=== PATIENT | female | born 1950 | race Caucasian/White ===

== ENCOUNTER 2018-01-23 15:57 | Inpatient (IN) | payer OTHER, MEDICARE ==
--- NOTE | 2018-01-23 16:20 | EDPHY ---
H & P Stated Complaint: edema Time Seen by Provider: 01/23/18 16:20 HPI/ROS: CHIEF COMPLAINT: Leg edema, chronic dyspnea HISTORY OF PRESENT ILLNESS: The patient is referred to the ED for leg edema and chronic dyspnea. Patient has a history of COPD. She is not on home oxygen. She has had a productive cough and dyspnea that began in the part of November. She was treated with 2 rounds of antibiotics and prednisone. At the beginning of December she developed lower extremity edema. She initially was treated with 10 mg a day of oral Lasix. She reports that Butmax was started at the end of December. She reports that her weight has dropped from 128 lb 211 lb. She continues to have lower extremity edema. REVIEW OF SYSTEMS: A comprehensive 10 point review of systems is otherwise negative aside from elements mentioned in the history of present illness. Source: Patient Exam Limitations: No limitations - Personal History Current Tetanus/Diphtheria Vaccine: Yes Current Tetanus Diphtheria and Acellular Pertussis (TDAP): Yes - Medical/Surgical History Hx Asthma: No Hx Chronic Respiratory Disease: Yes Hx Diabetes: No Hx Cardiac Disease: No Hx Renal Disease: No Hx Cirrhosis: No Hx Alcoholism: No Hx HIV/AIDS: No Hx Splenectomy or Spleen Trauma: No Other PMH: PMH: PNA, KIDNEY URETER DEFECT. - Social History Smoking Status: Current every day smoker - Physical Exam Exam: General Appearance: Alert, no distress Eyes: Pupils equal and round no pallor or injection ENT, Mouth: Mucous membranes moist Respiratory: There are no retractions, lungs are clear to auscultation Cardiovascular: Regular rate and rhythm Gastrointestinal: Abdomen is soft and nontender, no masses, bowel sounds normal Neurological: A&O, normal motor function, normal sensory exam, normal cranial nerves Skin: 3+ lower extremity edema with changes consistent with stasis dermatitis Musculoskeletal: Neck is supple nontender Extremities: 3+ lower extremity edema Psychiatric: Patient is oriented X 3, there is no agitation Constitutional: Initial Vital Signs O2 Sat (%) 97 01/23/18 16:10 O2 Delivery Mode Nasal Cannula O2 (L/minute) 5 Allergies/Adverse Reactions: No Known Allergies Allergy (Unverified 01/23/18 16:06) Home Medications: Medication Instructions Recorded Buprenorphine HCl/Naloxone HCl 0.5 each SL BID@12/08/15 [Suboxone 8 mg-2 mg SL Film] Gabapentin [Neurontin 300 MG (*)] 300 mg PO HS 12/08/15 clonazePAM [Klonopin (*)] 0.5 mg PO HS 12/08/15 Albuterol [Proventil Inhaler HFA 1 - 2 puffs IH Q4H PRN 01/23/18 (*)] Bumetanide [Bumex (*)] 1 mg PO DAILY 01/23/18 Cholecalciferol Vit D3 [Vitamin D3 1,000 units PO DAILY 01/23/18 (*)] Furosemide [Lasix 40 MG (*)] 40 mg PO DAILY 01/23/18 Herbals/Supplements -Info Only 1 ea PO DAILY 01/23/18 Ipratropium/Albuterol [Duoneb (*)] 3 ml IH Q6H PRN 01/23/18 Multivitamins [Multivitamin (*)] 1 each PO DAILY 01/23/18 Medical Decision Making - Diagnostics EKG Interpretation: EKG: Complete interpretation has been separately recorded in the [email or web address] archive. Summary impression: Sinus rhythm, rate 82, LVH, ST T wave changes noted in the precordial leads. Imaging Results: Imaging Impressions Chest X-Ray 01/23/18 16:36 Impression: 1. Underlying COPD/emphysema suspected. 2. Mild prominent interstitial markings at the lung bases. Consider mild dependent interstitial edema possibly from mild fluid overload. CT pulmonary angiogram: Images reviewed by myself and discussed with radiologist Dr. Dietrich: Negative for PE. Patient does have an enlarged pulmonary artery. CT abdomen pelvis with IV contrast: Negative for obstructive lesion involving the IVC. ED Course/Re-evaluation: The patient presents to the ED with complaints of newly diagnosed severe hypoxemia with an oxygen saturation of 64% on room air, bilateral lower extremity swelling refractory to diuresis and ongoing dyspnea. The patient's hypoxia corrects with 4 L nasal cannula oxygen. Chest x-ray demonstrates COPD with associated heart failure. I reviewed the patient's past medical records including her hospitalization in 2016. She had an echocardiogram at that point time that demonstrate any EF of 60 -65%. She did have slightly elevated RV pressure. The patient will require admission to the hospital for further evaluation of her acute hypoxemia, refractory edema and dyspnea. Consultation is made with the hospitalist service. The patient is noted to have an elevated D-dimer. In the setting of her hypoxia a CT pulmonary angiogram has been ordered. Additionally a CT scan of the abdomen pelvis will be ordered to ensure there is no evidence of an obstructing IVC lesion. The patient will be admitted to the PCU telemetry unit this evening. Differential Diagnosis: Differential diagnosis considered includes congestive heart failure, arrhythmia , COPD exacerbation. - Data Points Laboratory Results: Laboratory Results 01/23/18 16:30 01/23/18 16:30 01/23/1818 01/23/18 16:30 16:30 16:30 WBC 8.73 10^3/uL 10^3/uL (3.80-9.50) RBC 5.65 10^6/uL H 10^6/uL (4.18-5.33) Hgb 16.3 g/dL g/dL (12.6-16.3) Hct 51.4 % H % (38.0-47.0) MCV 91.0 fL fL (81.5-99.8) MCH 28.8 pg pg (27.9-34.1) MCHC 31.7 g/dL L g/dL (32.4-36.7) RDW 16.8 % H % (11.5-15.2) Plt Count 336 10^3/uL 10^3/uL (150-400) MPV 8.9 fL fL (8.7-11.7) Neut % (Auto) 80.6 % H % (39.3-74.2) Lymph % (Auto) 11.1 % L % (15.0-45.0) [place] % (Auto) 6.9 % % (4.5-13.0) Eos % (Auto) 0.3 % L % (0.6-7.6) Baso % (Auto) 0.6 % % (0.3-1.7) Nucleat RBC Rel Count 0.0 % % (0.0-0.2) Absolute Neuts (auto) 7.04 10^3/uL H 10^3/uL (1.70-6.50) Absolute Lymphs (auto) 0.97 10^3/uL L 10^3/uL (1.00-3.00) Absolute Monos (auto) 0.60 10^3/uL 10^3/uL (0.30-0.80) Absolute Eos (auto) 0.03 10^3/uL 10^3/uL (0.03-0.40) Absolute Basos (auto) 0.05 10^3/uL 10^3/uL (0.02-0.10) Absolute Nucleated RBC 0.00 10^3/uL 10^3/uL (0-0.01) Immature Gran % 0.5 % % (0.0-1.1) Immature Gran # 0.04 10^3/uL 10^3/uL (0.00-0.10) D-Dimer REJ Sodium 136 mEq/L mEq/L (135-145) Potassium 3.2 mEq/L L mEq/L (3.5-5.2) Chloride 89 mEq/L L mEq/L (97-110) Carbon Dioxide 36 mEq/l H mEq/l (22-31) Anion Gap 11 mEq/L mEq/L (8-16) BUN 19 mg/dL mg/dL (7-23) Creatinine 0.5 mg/dL L mg/dL (0.6-1.0) Estimated GFR > 60 Glucose 134 mg/dL H mg/dL (70-100) Calcium 9.2 mg/dL mg/dL (8.5-10.4) Troponin I < 0.012 ng/mL ng/mL (0.000-0.034) NT-Pro-B Natriuret Pep 2660 pg/mL H pg/mL (0-125) Medications Given: Potassium Chloride (Klor-Con) 20 meq PO DAILY MAYCO Stop: 07/22/18 17:59 Last Admin: 01/23/18 18:26 Dose: 20 meq Discontinued Medications Bumetanide (Bumex) 1 mg IVP ONCE ONE Stop: 01/23/18 18:47 Last Admin: 01/23/18 20:56 Dose: 1 mg Potassium Chloride (Klor-Con) 40 meq PO ONCE ONE Stop: 01/23/18 17:48 Last Admin: 01/23/18 18:26 Dose: 40 meq Departure - Departure Disposition: [facility] Acute Clinical Impression: Peripheral edema, Hypoxemia, Chronic obstructive pulmonary disease with acute exacerbation Condition: Good
--- NOTE | 2018-01-23 16:29 | CPEKG ---
Heart Rate: 82 RR Interval: 732 P-R Interval: 148 QRSD Interval: 90 QT Interval: 400 QTC Interval: 468 P [place]: 79 QRS [place]: 116 T Wave [place]: 61 EKG Severity - ABNORMAL ECG - EKG Impression: SINUS RHYTHM EKG Impression: RIGHT AXIS DEVIATION EKG Impression: CONSISTENT WITH LEFT VENTRICULAR HYPERTROPHY EKG Impression: ANTERIOR ST ELEVATION, PROBABLY DUE TO LVH Electronically Signed By: Moy Goodman 23-Jan-2018 19:21:17
[2018-01-23 16:47] LABS: PLATELET COUNT 336 10^3/uL (150-400)
[2018-01-23] MEDS ORDERED: ACETAMINOPHEN 325 MG TAB PO PRN (17:44)
[2018-01-23] MEDS ORDERED: ONDANSETRON 4 MG/2 ML VIAL IVP PRN (17:44)
[2018-01-23] MEDS ORDERED: ONDANSETRON DISINTEGRATING 4 MG TAB PO PRN (17:44)
[2018-01-23] MEDS ORDERED: POTASSIUM CL 20 MEQ TAB PO ONE (17:47)
[2018-01-23] MEDS: POTASSIUM CL 20 MEQ TAB PO SCH (18:26)
[2018-01-23] MEDS ORDERED: IOPAMIDOL (ISOVUE 370) 100 ML BTL IV ONE (18:31)
[2018-01-23] MEDS ORDERED: IPRATROPIUM/ALBUTEROL 3 ML DEYVIAL IH PRN (18:46)
[2018-01-23] MEDS ORDERED: ALBUTEROL 60 PUFFS/8 GM MDI IH PRN (18:46)
[2018-01-23] MEDS ORDERED: BUMETANIDE 1 MG/4 ML VIAL IVP ONE (18:46)
[2018-01-23] MEDS ORDERED: NALOXONE HCL SL SCH (19:00)
[2018-01-23] MEDS ORDERED: [UNRECOGNIZED DRUG - OTHER] SL SCH (19:00)
[2018-01-23] MEDS ORDERED: BUPRENORPHINE HCL SL SCH (19:00)
--- NOTE | 2018-01-23 19:00 | PDGENHP ---
History and Physical - Chief Complaint Acute lower extremity edema - History of Present Illness Primary care provider: Dr. White HPI: 67-year-old female presents with acute lower extremity edema characterized as swollen, tight lower extremities equal bilaterally with associated flaking skin and areas of ulceration as well as erythema with associated shortness of breath exacerbated by exertion, nonproductive cough. The patient reports her onset of symptoms approximately 4 weeks ago with what she describes as pneumonia symptoms which initially responded to a course of steroids and antibiotics prescribed by her primary care provider. Her pulmonary symptoms did not completely resolve and she went back to her primary care provider, receiving an additional course of steroids and antibiotics. These were completed approximately 10 days ago. Occurring concomitantly during her pulmonary symptoms the patient began to experience the lower extremity edema and she was prescribed Lasix 20 mg once daily 3 weeks ago. This did not produce a particularly noticeable effect and approximately 1 week ago her primary care provider added Bumex 1 mg twice daily. The patient continued to take her Lasix, as well as the Bumex, and she began noting significant polyuria. Over the past week she has lost approximately 10 lb of water weight. Over the past several days she has de-escalated her Bumex dosing down to 1 mg once daily and discontinued her Lasix 20 mg once daily despite these interventions, the patient's lower extremity edema persists and the aforementioned skin changes concern the patient and she sought medical attention. She is not currently have primary care provider as her former PCP is out of network, the patient became increasingly dyspneic, cognitively fatigue and concerned on the day of presentation. She denies any overt chest pain or fevers, but does endorse intermittent chills as well as polyarthralgia. History Information - Allergies/Home Medication List Allergies/Adverse Reactions: No Known Allergies Allergy (Unverified 01/23/18 16:06) Home Medications: Buprenorphine HCl/Naloxone HCl [Suboxone 8 mg-2 mg SL Film] 0.5 each SL BID@12/08/15 [Last Taken 01/23/18 06:00] Gabapentin [Neurontin 300 MG (*)] 300 mg PO HS 12/08/15 [Last Taken 01/22/18] clonazePAM [Klonopin (*)] 0.5 mg PO HS 12/08/15 [Last Taken 01/22/18] Albuterol [Proventil Inhaler HFA (*)] 1 - 2 puffs IH Q4H PRN 01/23/18 [Last Taken 01/23/18 15:00] Bumetanide [Bumex (*)] 1 mg PO DAILY 01/23/18 [Last Taken 01/23/18 06:00] Cholecalciferol Vit D3 [Vitamin D3 (*)] 1,000 units PO DAILY 01/23/18 [Last Taken 01/23/18] Furosemide [Lasix 40 MG (*)] 40 mg PO DAILY 01/23/18 [Last Taken 01/23/18 06:00] Herbals/Supplements -Info Only 1 ea PO DAILY 01/23/18 [Last Taken 01/23/18] Ipratropium/Albuterol [Duoneb (*)] 3 ml IH Q6H PRN 01/23/18 [Last Taken 05:00] Multivitamins [Multivitamin (*)] 1 each PO DAILY 01/23/18 [Last Taken 01/23/18] I have personally reviewed and updated: family history, medical history, social history, surgical history - Past Medical History CHF (Suspected diastolic CHF from 2 years prior, has not seen a shingle grader), COPD Additional medical history: Rheumatoid arthritis with continuous opiate dependency. Peripheral neuropathy - Surgical History Additional surgical history: Right total hip replacement 1999 - Family History Additional family history: No family history of venous thromboembolism or coronary artery disease - Social History Smoking Status: Current every day smoker Alcohol Use: None Drug Use: None Additional social history: Independent in ADLs Review of Systems Review of Systems: ROS: 10pt was reviewed & negative except for what was stated in HPI & below Constitutional: Reports: chills, weight loss Cardiac: Reports: edema Respiratory: Reports: cough, shortness of breath Skin: Reports: change in color Physical Exam Physical Exam: Temp Pulse Resp BP Pulse Ox 37.1 C 87 18 103/65 95 01/23/18 18:46 01/23/18 18:46 01/23/18 18:46 01/23/18 18:46 01/23/18 18:26 O2 (L/minute) 5 Constitutional: appears nourished, not in pain, uncomfortable, No no apparent distress (Mild) Eyes: PERRL, anicteric sclera, EOMI Ears, Nose, Mouth, Throat: moist mucous membranes, hearing normal, ears appear normal, no oral mucosal ulcers Cardiovascular: edema (2+ bilateral lower extremities), No systolic murmur, No irregularly irregular, No JVD (Positive hepatic jugular reflux), No tachycardia Respiratory: reduced air movement (On expiration bilaterally), other (Cough triggered with expiration), No expiratory wheeze, No inspiratory crackles, No bronchial breath sounds Gastrointestinal: normoactive bowel sounds, No tenderness, No guarding, No distension Skin: erythema (Blanching bilateral lower extremities), other (Ulcerations skin flaking bilateral lower extremities) Musculoskeletal: full muscle strength, other (Full range of motion bilateral ankles with some tenderness in the calves on dorsiflexion) Neurologic: AAOx3, sensation intact bilaterally, No weakness (5/5 motor strength bilateral lower extremities) Psychiatric: interacting appropriately, not anxious, not encephalopathic, thought process linear Lymph, Heme, Immunologic: no cervical LAD, other (Mildly tender 2 cm submandibular lymph nodes bilaterally) Lab Data & Imaging Review 01/23/18 16:30 01/23/18 16:30 WBC 8.73 10^3/uL (3.80-9.50) 01/23/18 16:30 RBC 5.65 10^6/uL (4.18-5.33) H 01/23/18 16:30 Hgb 16.3 g/dL (12.6-16.3) 01/23/18 16:30 Hct 51.4 % (38.0-47.0) H 01/23/18 16:30 MCV 91.0 fL (81.5-99.8) 01/23/18 16:30 MCH 28.8 pg (27.9-34.1) 01/23/18 16:30 MCHC 31.7 g/dL (32.4-36.7) L 01/23/18 16:30 RDW 16.8 % (11.5-15.2) H 01/23/18 16:30 Plt Count 336 10^3/uL (150-400) 01/23/18 16:30 MPV 8.9 fL (8.7-11.7) 01/23/18 16:30 Neut % (Auto) 80.6 % (39.3-74.2) H 01/23/18 16:30 Lymph % (Auto) 11.1 % (15.0-45.0) L 01/23/18 16:30 [place] % (Auto) 6.9 % (4.5-13.0) 01/23/18 16:30 Eos % (Auto) 0.3 % (0.6-7.6) L 01/23/18 16:30 Baso % (Auto) 0.6 % (0.3-1.7) 01/23/18 16:30 Nucleat RBC Rel Count 0.0 % (0.0-0.2) 01/23/18 16:30 Absolute Neuts (auto) 7.04 10^3/uL (1.70-6.50) H 01/23/18 16:30 Absolute Lymphs (auto) 0.97 10^3/uL (1.00-3.00) L 01/23/18 16:30 Absolute Monos (auto) 0.60 10^3/uL (0.30-0.80) 01/23/18 16:30 Absolute Eos (auto) 0.03 10^3/uL (0.03-0.40) 01/23/18 16:30 Absolute Basos (auto) 0.05 10^3/uL (0.02-0.10) 01/23/18 16:30 Absolute Nucleated RBC 0.00 10^3/uL (0-0.01) 01/23/18 16:30 Immature Gran % 0.5 % (0.0-1.1) 01/23/18 16:30 Immature Gran # 0.04 10^3/uL (0.00-0.10) 01/23/18 16:30 D-Dimer 0.98 ug/mLFEU (0.00-0.50) H 01/23/18 17:45 Sodium 136 mEq/L (135-145) 01/23/18 16:30 Potassium 3.2 mEq/L (3.5-5.2) L 01/23/18 16:30 Chloride 89 mEq/L (97-110) L 01/23/18 16:30 Carbon Dioxide 36 mEq/l (22-31) H 01/23/18 16:30 Anion Gap 11 mEq/L (8-16) 01/23/18 16:30 BUN 19 mg/dL (7-23) 01/23/18 16:30 Creatinine 0.5 mg/dL (0.6-1.0) L 01/23/18 16:30 Estimated GFR > 60 01/23/18 16:30 Glucose 134 mg/dL (70-100) H 01/23/18 16:30 Calcium 9.2 mg/dL (8.5-10.4) 01/23/18 16:30 Troponin I < 0.012 ng/mL (0.000-0.034) 01/23/18 16:30 NT-Pro-B Natriuret Pep 2660 pg/mL (0-125) H 01/23/18 16:30 Visualized and Interpreted Chest x-ray results: Yes Chest X-Ray results: other (Hyperinflated lungs with interstitial markings in the bases) Visualized and Interpreted EKG results: Yes EKG Interpretation: Positive for: other (Normal sinus mechanism with ST elevation in lead V2 and V3 with T-wave inversions and likely left ventricular hypertrophy) Assessment & Plan Assessment: 67-year-old female presenting with acute dyspnea and lower extremity edema in the setting of suspected acute diastolic congestive heart failure exacerbation, right-sided Plan: 1. Suspected acute diastolic congestive heart failure exacerbation. Right- sided, new problem this provider, further workup indicated. Patient's symptoms suggest right-sided CHF and correspond to her history of underlying COPD and ongoing tobacco use, and there may be a diastolic component with review of outside records revealing diastolic dysfunction on echocardiogram and elevated right-sided pressures during her 12/12/2015 episode of care and discharge summary by Dr. Hector Sales, discharged on Lasix 20 mg daily, BNP 2200 at that time -repeat echo -administer Bumex 1 mg IV twice daily with supplemental potassium -monitor electrolytes closely -check respiratory viral panel to ensure that viral condition not contributing -monitor I&Os, daily weights -D-dimer elevated, discussed with Dr. Kostas Goodman, we agree to get CT angiogram to rule out pulmonary embolism as a contributing factor -hold on cardiology consultation at this time, gather information above, the pending on study results, may recommend outpatient cardiology follow-up to the patient at [facility] -continue monitor on telemetry to ensure no arrhythmias as a contributing factor 2. COPD. Chronic, currently no evidence of acute exacerbation, continue home medications with nebs and inhalers as needed 3. Hyperglycemia. Acute, check hemoglobin A1c 4. Continuous opiate dependency. Continue home Suboxone 5. Rheumatoid arthritis and neuropathy. Continue gabapentin, Suboxone Diet. Cardiac Prophylaxis. High risk patient, Lovenox 40 Code. Do not resuscitate per patient, her children are joint MD POA Disposition. Anticipated discharge is uncertain this time, anticipated length stay is greater than 48 hr for reasonable medical necessity including acute suspected CHF exacerbation requiring further workup as well as treatment with IV diuretics, has failed oral diuretics as an outpatient and meets all inpatient criteria as outlined by [facility] guidelines. Patient reports to me that she does not have access to her previous primary care provider given insurance restrictions, recommend we assist her finding a primary care provider in [place] who will take her Medicare coverage.
[2018-01-23] MEDS: GABAPENTIN 300 MG CAP PO SCH (21:28)
[2018-01-23] MEDS: clonazePAM 0.5 MG TAB PO SCH (21:28)
[2018-01-24] MEDS ORDERED: BUMETANIDE 1 MG/4 ML VIAL IVP SCH (09:00)
[2018-01-24] MEDS ORDERED: Herbals/Supplements -Info Only PO SCH (09:00)
[2018-01-24] MEDS: ENOXAPARIN 40 MG/0.4 ML SYR SC SCH (09:35)
[2018-01-24] MEDS: POTASSIUM CL 20 MEQ TAB PO SCH (09:37)
[2018-01-24] MEDS: CHOLECALCIFEROL VIT D3 1,000 UNITS TAB PO SCH (09:37)
[2018-01-24] MEDS: MULTIVITAMINS 1 EACH TAB PO SCH (09:37)
--- NOTE | 2018-01-24 10:15 | PDMN ---
Medical Necessity Medical necessity: est los>2mn for AHRF w/ O2 sat 68 RA, r/t acute diastolic CHF exacerbation w/failed OP oral diuretics, and acute hyperglycemia; admit for IV diuresis, supplemental O2, r/o PE; comorbid COPD, RA, neuropathy, opiate dependency; per order and H&P 01/23/18
--- NOTE | 2018-01-24 10:33 | ECHO ---
[email or web address] [address] [address] Main: [phone] Fax: Transthoracic Echocardiogram Name: MICHELLE PACE MR#: [id number] Study Date: 01/24/2018 Study Time: 07:58 AM Date of : 1950 Age: 67 year(s) Height: 162.6 cm (64 in.) Weight: 50.35 kg (111 lb.) BSA: 1.52 m2 Gender: Female Examination: Echo Indication: Image Quality: Adequate Contrast: Requested by: Albert Garcia BP: 110 mmHg/47 mmHg Heart Rate: Rhythm: Indication: Procedure Staff [employer]enger Car: Nelly Leiva RDCS Reading Physician: Gus Daigle MD Requesting Provider: Conclusions: Normal global systolic LV function. EF is 63 %. Mildly to moderately dilated right ventricle. Mildly reduced RV function. Moderate tricuspid regurgitation is present. The pulmonary artery pressure is mild to moderately increased. Right ventricular systolic pressure measures 55mmHg. Measurements: Chambers Valvular Assessment AV/MV Valvular Assessment TV/PV Normal Normal Normal Name Value Range Name Value Range Name Value Range Ao Qing (2D): 2.9 cm (1.4 cm-2.6 AV meanP mmHg ( - ) TR Vmax: 3.54 mm/s ( - ) cm) KIRTI (VTI): 2.7 cm ( - ) TR PGmax: 50 mmHg ( - ) IVSd (2D): 1.5 cm (0.6 cm-1.1 MV E Vmax: 0.92 m/s ( - ) syst. PAP: 105 mmHg ( - ) cm) MV A Vmax: 0.66 m/s ( - ) PV Vmax: 0.90 m/s (0.6 m/s-0.9 LVDd (2D): 3.1 cm (3.9 cm-5.3 MV E/A: 1.39 ( - ) m/s) cm) MV PHT: 0.081 s ( - ) PV PGmax: 3 mmHg ( - ) LVDs (2D): 2.1 cm (2.1 cm-4 cm) MVA (PHT): 2.7 s ( - ) LVPWd (2D): 1.3 cm ( - ) LVOTd 2.0 cm 2.0 cm mm LVEF (BP): 63 % (>=55 %) RVDd(2D): 2.9 cm (1.9 cm-3.8 cmmm) Continued Measurements: Chambers Valvular Assessment AV/MV Valvular Assessment TV/PV Name Value Name Value Name Value Patient: MICHELLE PACE Study Date: 01/24/2018 Page 1 of 2 07:58 AM LADs: 3.6 cm MV DecTime: 261 m/s CVP (est.): 55 mmHg LADs Lon.7 cm MV E' Septal: 0.05 m/s LA Area: 16.4 cm2 MV E/E' Septal: 17.20 LA Volume: 51 ml MV E/E' Lateral: 10.30 LA Volume Index: 33.6 ml/m2 RA Area: 22.7 cm2 Additional Vessels Name Value Ao Ascendin.0 cm Inferior Vena Cava: 1.9 cm Findings: Left Ventricle: Normal size left ventricle. Normal global systolic LV function. EF is 63 %. No regional wall motion abnormality. Normal diastolic LV function. Left ventricular hypertrophy. Right Ventricle: Mildly to moderately dilated right ventricle. Mildly reduced RV function. Dilated right heart suggestive of pressure overload. Left Atrium: The left atrium is normal in size. Right Atrium: Right atrial enlargement. Mitral Valve: The mitral valve is normal in appearance and function. Mild mitral valve regurgitation is present. No mitral stenosis is present. Aortic Valve: The aortic valve is normal in appearance and function. Aortic sclerosis is present. There is no significant aortic valve regurgitation. No aortic valve stenosis is present. Focal calcification of the non-coronary cusp. Tricuspid Valve: The tricuspid valve is normal in appearance and function. Moderate tricuspid regurgitation is present. The pulmonary artery pressure is mild to moderately increased. Right ventricular systolic pressure measures 55mmHg. Pulmonic Valve: The pulmonic valve is normal in appearance and function. Trivial pulmonic valve regurgitation. Aorta: The aorta is normal. Normal size aortic root measuring 2.9 cm. Normal size ascending aorta measuring 3.0 cm. IVC: The IVC is normal sized. Pericardium: No pericardial effusion. No pleural effusion. Exam Comments: Technically difficult, patient very thin. (No Signature Object) Patient: MICHELLE PACE Study Date: 01/24/2018 Page 2 of 2 07:58 AM [id number]
[2018-01-24] MEDS: predniSONE 20 MG TAB PO SCH (10:53)
[2018-01-24] MEDS: IPRATROPIUM/ALBUTEROL 3 ML DEYVIAL IH SCH ×3 (11:18→21:14)
[2018-01-24] MEDS: FLUTICASONE/SALMETER 250/50MCG DISKUS IH SCH ×2 (11:29→21:14)
--- NOTE | 2018-01-24 12:37 | ASMTCASEMG ---
Living Arrangements What is your living Answers: Alone arrangement? Who do you live with? Type Of Residence What kind of residence do Answers: House you live in? Discharge Plan Comments Coordination Status Comments Notes: Pt is a 67 y/o female admitted for COPD, hypoxia and peripheral edema. PT/OT has been ordered. OT is recommending home w/ HC vs home w/ outpatient therapies. Awaiting recommendations from PT. Needs are TBD at this time. CM to follow. Plan: TBD Date Signed: 01/24/2018 12:37 PM Electronically Signed By:JACLYN Foreman
[2018-01-24] MEDS: BUMETANIDE 1 MG/4 ML VIAL IVP SCH (15:39)
--- NOTE | 2018-01-24 15:41 | HOSPPROG ---
Hospitalist Progress Note Assessment/Plan: # acute hypoxic respiratory failure - multifactorial- patient with previous history of COPD- oxygen saturations 89% on 4L Chest CT(personally reviewed and interpreted) shows no pulmonary embolism or infiltrates -start prednisone 60 -start Advair -continue scheduled duo nebs # acute COPD exacerbation- patient moving very poor air on examination with some wheezing Based on history of symptoms prior to presentation suspect patient has Gold class C COPD Respiratory pathogen panel negative - treatment as above # suspected acute right heart failure- patient with progressive lower extremity edema preceding presentation - transthoracic echocardiogram ordered - continue diuresis # severe protein calorie malnutrition- losing weight over past year- suspect 2/ 2 progressive lung disease # prophylaxis Lovenox # diet regular # disposition greater than 2 midnights as the patient remains acutely quite ill requiring inpatient management of her COPD I have discussed case with the RN- we will initiate steroids today follow clinical progress Subjective: Feels a bit better still exhausted Objective: Vital Signs Temp Pulse Resp BP Pulse Ox 36.7 C 87 15 98/64 L 85 L 01/24/18 12:13 01/24/18 12:13 01/24/18 12:13 01/24/18 12:13 01/24/18 12:58 Microbiology 01/23/18 21:08 Respiratory Panel (PCR) - Final Nasal, Sinus - [place] Viral Transport No Organism Detected Laboratory Results 01/24/18 04:04 01/23/18 01/24/18 01/25/18 05:59 05:59 05:59 Intake Total 1100 Output Total 1150 1000 Balance -50 -1000 - Physical Exam Constitutional: chronically ill appearing, cachectic Eyes: anicteric sclera Ears, Nose, Mouth, Throat: dry mucous membranes Cardiovascular: regular rate and rhythym Respiratory: no respiratory distress, reduced air movement, expiratory wheeze Gastrointestinal: normoactive bowel sounds Genitourinary: no bladder fullness Skin: warm Musculoskeletal: No asymmetric calves Neurologic: AAOx3 Psychiatric: interacting appropriately Lymph, Heme, Immunologic: no cervical LAD ICD10 Worksheet Patient Problems: Problems Problem Status Onset Chronic obstructive pulmonary disease with acute exacerbation Acute Hypoxemia Acute Peripheral edema Acute Acute exacerbation of congestive heart failure Acute Pneumonia and influenza Acute Respiratory distress Acute
[2018-01-24] MEDS: clonazePAM 0.5 MG TAB PO SCH (20:11)
[2018-01-24] MEDS: GABAPENTIN 300 MG CAP PO SCH (20:11)
[2018-01-25] MEDS: IPRATROPIUM/ALBUTEROL 3 ML DEYVIAL IH SCH ×4 (06:19→21:02)
[2018-01-25] MEDS: predniSONE 20 MG TAB PO SCH (09:04)
[2018-01-25] MEDS: MULTIVITAMINS 1 EACH TAB PO SCH (09:04)
[2018-01-25] MEDS: POTASSIUM CL 20 MEQ TAB PO SCH (09:05)
[2018-01-25] MEDS: ENOXAPARIN 40 MG/0.4 ML SYR SC SCH (09:05)
[2018-01-25] MEDS: CHOLECALCIFEROL VIT D3 1,000 UNITS TAB PO SCH (09:05)
[2018-01-25] MEDS: BUMETANIDE 1 MG/4 ML VIAL IVP SCH ×2 (09:06→15:09)
[2018-01-25] MEDS: NICOTINE 14 MG/24 HR PATCH TD SCH (10:40)
[2018-01-25] MEDS: FLUTICASONE/SALMETER 250/50MCG DISKUS IH SCH ×2 (11:15→21:02)
--- NOTE | 2018-01-25 11:42 | HOSPPROG ---
Hospitalist Progress Note Assessment/Plan: # acute hypoxic respiratory failure - multifactorial- patient with previous history of COPD- oxygen saturations 93% on 5L Chest CT (personally reviewed and interpreted) shows no pulmonary embolism or infiltrates -start prednisone 60 -start Advair -continue scheduled duo nebs # acute COPD exacerbation- patient moving very poor air on examination with some wheezing Based on history of symptoms prior to presentation suspect patient has Gold class C COPD Respiratory pathogen panel negative - treatment as above # Acute right heart failure- patient with progressive lower extremity edema preceding presentation- edema improved creatinine 0.4 transthoracic echocardiogram (reviewed) right heart failure with preserved EF - continue diuresis # severe protein calorie malnutrition- losing weight over past year- suspect 2/ 2 progressive lung disease # prophylaxis Lovenox # diet regular # disposition greater than 2 midnights as the patient remains acutely quite ill requiring inpatient management of her COPD I have discussed case with the RN- I am confident that his patient will need outpatient oxygen on dc - we discussed this today Subjective: breathing more easily Objective: Vital Signs Temp Pulse Resp BP Pulse Ox 36.6 C 88 18 93/54 L 88 L 01/25/18 07:49 01/25/18 11:16 01/25/18 11:16 01/25/18 07:49 01/25/18 11:16 Microbiology 01/23/18 21:08 Respiratory Panel (PCR) - Final Nasal, Sinus - [place] Viral Transport No Organism Detected Laboratory Results 01/25/18 03:58 01/24/18 01/25/18 01/26/18 05:59 05:59 05:59 Intake Total 1100 600 450 Output Total 1150 1600 800 Balance -50 -1000 -350 - Physical Exam Constitutional: no apparent distress Eyes: anicteric sclera Ears, Nose, Mouth, Throat: moist mucous membranes Cardiovascular: regular rate and rhythym Respiratory: reduced air movement, No expiratory wheeze Gastrointestinal: normoactive bowel sounds Genitourinary: no bladder fullness Skin: warm Musculoskeletal: other (symmetric edema), No asymmetric calves Neurologic: AAOx3 Psychiatric: interacting appropriately Lymph, Heme, Immunologic: no cervical LAD ICD10 Worksheet Patient Problems: Problems Problem Status Onset Chronic obstructive pulmonary disease with acute exacerbation Acute Hypoxemia Acute Peripheral edema Acute Acute exacerbation of congestive heart failure Acute Pneumonia and influenza Acute Respiratory distress Acute
--- NOTE | 2018-01-25 12:08 | ASMTCMCOM ---
CM Note CM Note Notes: Pts case discussed in tx rounds. CM met w/ pt for dispo planning. PT is recommending outpatient therapy and OT is recommending HC vs home w/ outpatient follow up. Pt reports that she feels confident to go home without any services. Pt did request to have a new PCP. Pt reports that since she got on Medicare her previous PCP can no longer accept her insurance. Pt would prefer a male doctor, someone that takes her insurance and someone in [place]. CM made a new PCP appointment for pt w/ Dr. Garcias for 01/30/18 @ 9:45AM. CM inputted appointment into [facility]. CM available for changes. Plan: Independent Date Signed: 01/25/2018 12:07 PM Electronically Signed By:JACLYN Foreman
[2018-01-25] MEDS: GABAPENTIN 300 MG CAP PO SCH (21:31)
[2018-01-25] MEDS: clonazePAM 0.5 MG TAB PO SCH (21:32)
[2018-01-25] MEDS ORDERED: SIMETHICONE 80 MG TAB CHEW PO PRN (22:56)
[2018-01-26] MEDS: IPRATROPIUM/ALBUTEROL 3 ML DEYVIAL IH SCH ×4 (04:11→22:57)
[2018-01-26] MEDS: NICOTINE 14 MG/24 HR PATCH TD SCH (09:22)
[2018-01-26] MEDS: BUMETANIDE 1 MG/4 ML VIAL IVP SCH ×2 (09:24→14:23)
[2018-01-26] MEDS: CHOLECALCIFEROL VIT D3 1,000 UNITS TAB PO SCH (09:26)
[2018-01-26] MEDS: ENOXAPARIN 40 MG/0.4 ML SYR SC SCH (09:26)
[2018-01-26] MEDS: MULTIVITAMINS 1 EACH TAB PO SCH (09:26)
[2018-01-26] MEDS: POTASSIUM CL 20 MEQ TAB PO SCH (09:26)
[2018-01-26] MEDS: predniSONE 20 MG TAB PO SCH (09:27)
[2018-01-26] MEDS: FLUTICASONE/SALMETER 250/50MCG DISKUS IH SCH ×2 (10:35→22:59)
--- NOTE | 2018-01-26 13:25 | HOSPPROG ---
Hospitalist Progress Note Assessment/Plan: * Acute respiratory failure -still on 9L O2 - needs to wean further down for discharge -repeat CXR * COPD exacerbation -steroids, nebs * Secondary pulm HTN with right heart failure -IV Bumex * Tobacco dependence -advised cessation * RA * Neuropathy * Continuous narcotic dependency -Suboxone * Bile duct dilation -consider outpatient MRCP Subjective: Anxious to go home. Legs back to baseline for her. Objective: Vital Signs Temp Pulse Resp BP Pulse Ox 37.4 C 91 17 110/57 L 83 L 01/26/18 11:34 01/26/18 11:34 01/26/18 11:34 01/26/18 11:34 01/26/18 12:32 Laboratory Results 01/26/18 03:54 01/25/18 01/26/18 01/27/18 05:59 05:59 05:59 Intake Total 600 900 Output Total 1600 2150 900 Balance -1000 -1250 -900 ECHO - pulmonary HTN, RVSP > 50 CTA chest - no PE CXR viewed, my personal interpretation is - hyperexpanded, possible pulmonary edema - Physical Exam Constitutional: no apparent distress, appears nourished, not in pain Cardiovascular: regular rate and rhythym, no murmur, rub, or gallop Respiratory: no respiratory distress, no rales or rhonchi, clear to auscultation Gastrointestinal: normoactive bowel sounds, soft, non-tender abdomen, no palpable masses Skin: no rashes or abrasions, no fluctuance, no induration Neurologic: AAOx3, sensation intact bilaterally Psychiatric: interacting appropriately, not anxious, not encephalopathic, thought process linear ICD10 Worksheet Patient Problems: Problems Problem Status Onset Chronic obstructive pulmonary disease with acute exacerbation Acute Hypoxemia Acute Peripheral edema Acute Acute exacerbation of congestive heart failure Acute Pneumonia and influenza Acute Respiratory distress Acute
[2018-01-26] MEDS: guaiFENesin 600 MG TAB.ER PO SCH ×2 (14:24→21:22)
[2018-01-26] MEDS: clonazePAM 0.5 MG TAB PO SCH (21:23)
[2018-01-26] MEDS: GABAPENTIN 300 MG CAP PO SCH (21:23)
[2018-01-27 04:32] LABS: PLATELET COUNT 278 10^3/uL (150-400)
[2018-01-27] MEDS: IPRATROPIUM/ALBUTEROL 3 ML DEYVIAL IH SCH ×4 (05:51→22:41)
[2018-01-27] MEDS: FLUTICASONE/SALMETER 250/50MCG DISKUS IH SCH ×2 (08:58→22:46)
--- NOTE | 2018-01-27 09:37 | HOSPPROG ---
Hospitalist Progress Note Assessment/Plan: * Acute respiratory failure -81 % on 4L this am - still need to wean O2 lower for discharge -possible infiltrate on CXR - although no classic signs of PNA (no WBC/fever) will try empiric course abx to see if helps - start levaquin * COPD exacerbation -steroids, nebs * Secondary pulm HTN with right heart failure -IV Bumex -edema right >> left - check US rule out DVT * Tobacco dependence -advised cessation * RA * Neuropathy * Continuous narcotic dependency -Suboxone * Bile duct dilation -consider outpatient MRCP Subjective: No complaints. Objective: Vital Signs Temp Pulse Resp BP Pulse Ox 36.5 C 75 16 112/66 93 01/27/18 04:00 01/27/18 09:02 01/27/18 09:02 01/27/18 04:00 01/27/18 09:02 Microbiology 01/26/18 14:30 - Final Sputum, Expectorated Laboratory Results 01/27/18 04:17 01/27/18 04:17 01/26/18 01/27/18 01/28/18 05:59 05:59 05:59 Intake Total 900 350 Output Total 2149 2049 Balance -1250 -1700 CXR viewed, my personal interpretation is - possible LLL infiltrate tele reviewed - NSR - Physical Exam Constitutional: no apparent distress, appears nourished, not in pain Cardiovascular: regular rate and rhythym, no murmur, rub, or gallop, edema ( right >> left) Respiratory: no respiratory distress, no rales or rhonchi, clear to auscultation Gastrointestinal: normoactive bowel sounds, soft, non-tender abdomen, no palpable masses Skin: no rashes or abrasions, no fluctuance, no induration Neurologic: AAOx3, sensation intact bilaterally Psychiatric: interacting appropriately, not anxious, not encephalopathic, thought process linear ICD10 Worksheet Patient Problems: Problems Problem Status Onset Chronic obstructive pulmonary disease with acute exacerbation Acute Hypoxemia Acute Peripheral edema Acute Acute exacerbation of congestive heart failure Acute Pneumonia and influenza Acute Respiratory distress Acute
[2018-01-27] MEDS: NICOTINE 14 MG/24 HR PATCH TD SCH (09:38)
[2018-01-27] MEDS: guaiFENesin 600 MG TAB.ER PO SCH ×2 (09:38→20:33)
[2018-01-27] MEDS: BUMETANIDE 1 MG/4 ML VIAL IVP SCH ×2 (09:38→17:17)
[2018-01-27] MEDS: POTASSIUM CL 20 MEQ TAB PO SCH (09:40)
[2018-01-27] MEDS: CHOLECALCIFEROL VIT D3 1,000 UNITS TAB PO SCH (09:41)
[2018-01-27] MEDS: predniSONE 20 MG TAB PO SCH (09:41)
[2018-01-27] MEDS: MULTIVITAMINS 1 EACH TAB PO SCH (09:42)
[2018-01-27] MEDS: ENOXAPARIN 40 MG/0.4 ML SYR SC SCH (09:42)
[2018-01-27] MEDS: GABAPENTIN 300 MG CAP PO SCH (22:22)
[2018-01-27] MEDS: clonazePAM 0.5 MG TAB PO SCH (22:23)
[2018-01-28] MEDS: IPRATROPIUM/ALBUTEROL 3 ML DEYVIAL IH SCH ×2 (05:34→11:26)
[2018-01-28] MEDS: guaiFENesin 600 MG TAB.ER PO SCH (08:25)
[2018-01-28] MEDS: predniSONE 20 MG TAB PO SCH (08:25)
[2018-01-28] MEDS: POTASSIUM CL 20 MEQ TAB PO SCH (08:25)
[2018-01-28] MEDS: MULTIVITAMINS 1 EACH TAB PO SCH (08:25)
[2018-01-28] MEDS: CHOLECALCIFEROL VIT D3 1,000 UNITS TAB PO SCH (08:26)
[2018-01-28] MEDS: NICOTINE 14 MG/24 HR PATCH TD SCH (08:26)
[2018-01-28] MEDS: BUMETANIDE 1 MG/4 ML VIAL IVP SCH (08:27)
[2018-01-28] MEDS: ENOXAPARIN 40 MG/0.4 ML SYR SC SCH (08:31)
[2018-01-28] MEDS: FLUTICASONE/SALMETER 250/50MCG DISKUS IH SCH (08:47)
--- NOTE | 2018-01-28 10:12 | PDHOMEO2F ---
Home Oxygen Face to Face Home Orders: I certify that a physician or a nurse practitioner or physician's employment assistant has had a [id number] encounter with this patient on the date of this order due to the diagnosis listed, which relates to the primary reason the patient requires home oxygen. Alternative treatments have been tried, or considered, and deemed ineffective. It is anticipated that supplemental oxygen will result in improvement with treatment. Home oxygen qualifying diagnosis: COPD SpO2 on room air (%): 81 Frequency of home oxygen needed: continuous Home oxygen liters per minute: 4 Home oxygen delivery device: nasal cannula Concentrator: Yes E-tanks for mobility and back up: Yes If ordering portable O2, is the patient mobile in the home?: Yes I certify that, based on these findings, the home oxygen is medically necessary for this patient for the following length of time. Length of time home oxygen needed: 99 years
--- NOTE | 2018-01-28 10:22 | PDIAF ---
- Diagnosis Diagnosis: COPD exac, right heart failure, pna Code Status: Do Not Resuscitate - Medication Management Discharge Medications: Medications to Continue on Transfer Buprenorphine HCl/Naloxone HCl [Suboxone 8 mg-2 mg SL Film] 0.5 each SL BID@12/08/15 [Last Taken 01/23/18 06:00] Gabapentin [Neurontin 300 MG (*)] 300 mg PO HS 12/08/15 [Last Taken 01/22/18] clonazePAM [Klonopin (*)] 0.5 mg PO HS 12/08/15 [Last Taken 01/22/18] Albuterol [Proventil Inhaler HFA (*)] 1 - 2 puffs IH Q4H PRN 01/23/18 [Last Taken 01/23/18 15:00] Bumetanide [Bumex (*)] 1 mg PO DAILY 01/23/18 [Last Taken 01/23/18 06:00] Cholecalciferol Vit D3 [Vitamin D3 (*)] 1,000 units PO DAILY 01/23/18 [Last Taken 01/23/18] Herbals/Supplements -Info Only 1 ea PO DAILY 01/23/18 [Last Taken 01/23/18] Ipratropium/Albuterol [Duoneb (*)] 3 ml IH Q6H PRN 01/23/18 [Last Taken 05:00] Multivitamins [Multivitamin (*)] 1 each PO DAILY 01/23/18 [Last Taken 01/23/18] Fluticasone/Salmeter 250/50Mcg [Advair 250/50 (*)] 1 puffs IH BID #1 disk [Last Taken Unknown] Potassium Cl [Klor-Con 20 meq (*)] 20 meq PO DAILY #30 tab 01/28/18 [Last Taken Unknown] levOFLOXACIN [levAQUIN (*)] 750 mg PO DAILY #5 tab 01/28/18 [Last Taken Unknown] predniSONE 40 mg PO DAILY #10 tablet 01/28/18 [Last Taken Unknown] Discharge Medications: Refer to the Discharge Home Medication list for PRN reason. - Orders Services needed: Home Care, Registered Nurse, Physical Therapy, Occupational Therapy Home Care Face to Face: I certify that this patient was under my care and that I had the required [id number] encounter meeting the encounter requirements on the discharge day. My findings support the fact that the patient is homebound as defined in Home Care Face to Face Continued: CMS Chapter 7 Medicare Benefits Manual 30.1.1 , The condition of the patient is such that there exists a normal inability to leave home and consequently, leaving home would require a considerable and taxing effort. Isolation Type: None Oxygen: titrate to sat 91-92% Diet Recommendation: sodium restricted (2 grams) Weigh Patient: daily Additional Instructions: Daily weight - take extra dose Bumex in afternoon if weight is increasing Follow-up sputum culture results with PCP Outpatient MRCP to evaluate bile duct dilation STOP SMOKING Outpatient Pulmonary Rehab - Follow Up Care Current Providers and Referrals: Jessica Garcias MD [Medical Doctor] - 01/30/18 9:45 am (Please arrive 15-20 mins prior to appointment to fill out paperwork, insurance card, photo ID and med list.)
--- NOTE | 2018-01-28 10:52 | ASDISCHSUM ---
Discharge Information Plan Status:Home with Home Health Medically Cleared to Leave:01/28/2018 Discharge Date:01/28/2018 CM D/C Disposition:Home Health Service ADT D/C Disposition:Home Health Service Projected Discharge Date:01/28/2018 11:00 AM Transportation at D/C: Discharge Delay Reason: Follow-Up Date:01/28/2018 11:00 AM Discharge Slot: Final Diagnosis: Placement Information Referral Type:*Home Health Care Services Referral ID:[id number] Provider Name:[facility] Care Address 1:[address] [place] [address] Address 2: City:[place] Selection Factors: State:[place] Patient Contact Information Contact Name:KELSIE Relationship:Son Address: Work Phone: City: [facility] Phone: [facility] Code: Email: Financial Information Financial Class:Medicare Primary Plan Desc:MEDICARE INPATIENT Primary Plan Number:[id number] Secondary Plan Desc:[employer]/MDR SUPPLEMENT Secondary Plan Number:[id number] Assessment Information LACE LACE Length of stay for Answers: 4-6 days current admission Acuity / Level of Answers: Yes Care: Did the patient have an inpatient admission? Comorbidities - select Answers: Chronic pulmonary disease all that apply Congestive heart failure Opioid dependence / Chronic pain # of Emergency department Answers: 1-2 visits in the last 6 months Score: 16 Date Signed: 01/28/2018 10:51 AM Electronically Signed By:Gaby Johnston RN [facility] Initial CM Assessment Living Arrangements What is your living Answers: Alone arrangement? Who do you live with? Type Of Residence What kind of residence do Answers: House you live in? Discharge Plan Comments Coordination Status Comments Notes: Pt is a 67 y/o female admitted for COPD, hypoxia and peripheral edema. PT/OT has been ordered. OT is recommending home w/ HC vs home w/ outpatient therapies. Awaiting recommendations from PT. Needs are TBD at this time. CM to follow. Plan: TBD Date Signed: 01/24/2018 12:37 PM Electronically Signed By:JACLYN Foreman [facility] Progress Note CM Note CM Note Notes: Pts case discussed in tx rounds. CM met w/ pt for dispo planning. PT is recommending outpatient therapy and OT is recommending HC vs home w/ outpatient follow up. Pt reports that she feels confident to go home without any services. Pt did request to have a new PCP. Pt reports that since she got on Medicare her previous PCP can no longer accept her insurance. Pt would prefer a male doctor, someone that takes her insurance and someone in [place]. CARMEN made a new PCP appointment for pt w/ Dr. Garcias for 01/30/18 @ 9:45AM. CM inputted appointment into [facility]. CM available for changes. Plan: Independent Date Signed: 01/25/2018 12:07 PM Electronically Signed By:JACLYN Foreman Case Management Discharge Plan Note Case Management Discharge Discharge Order Complete? Answers: Yes Patient to Obtain Answers: Independently Medications Transportation Arranged Answers: Family/Friends Faxed Final Orders Answers: Yes Agency/Facility Transfer Answers: Yes Report Printed & Faxed to Receiving Agency Discharge Comments Notes: 01/28/2018 Case Management Note Pt has appointment for Dr. Acevedo on 01/30/2018 at 9:45 am. Arranged home care through [facility] for RN OT PT. Case Management faxed final orders. Date Signed: 01/28/2018 10:50 AM Electronically Signed By:Gaby Johnston RN Intervention Information Intervention Type:*IM-Signed Date of Service:01/25/2018 02:38 PM Patient Type:Inpatient Staff Member:Belia Perez Hours: Discipline: Severity: Comment:
--- NOTE | 2018-01-28 11:18 | GDS ---
[f rep st] DISCHARGE SUMMARY DISCHARGE DIAGNOSES: 1. Acute on chronic respiratory failure. 2. Chronic obstructive pulmonary disease exacerbation. 3. Secondary pulmonary hypertension with right heart failure. 4. Tobacco dependence. 5. Rheumatoid arthritis. 6. Neuropathy. 7. Continuous narcotic dependency. 8. Bile duct dilatation. HISTORY: The patient is a 67-year-old female, still smoking, came in with shortness of breath. She was found to have significant acute respiratory failure with very high oxygen requirement up to 9-10 L. She was treated with steroids and nebulizers for a COPD exacerbation. She had significant lower extremity edema, and her echocardiogram shows pulmonary hypertension. She was diuresed successfully with IV Bumex. She was very slow to improve. She was not given antibiotics initially because she did not have fever or white count, although a followup x-ray did show development of a subtle infiltrate. Given her fa ilure to progress, I did empirically start her on some antibiotics. She got a dose of Levaquin IV ye sterday and is dramatically improved today, which suggests that there was an acute bacterial componen t. Will complete a full course of oral Levaquin post discharge. Her oxygen requirement has come eder n, but she will be discharged home with home O2. I would not be surprised if she has a chronic oxyge n requirement indefinitely. Incidentally noted on CT scan is some bile duct dilatation. There was no obvious mass. Her LFTs are normal. She has not previously had a cholecystectomy. This should be followed up as an outpatient. Could consider MRCP. DISCHARGE MEDICATIONS: 1. Please see computerized record for full detailed list. New medications Advair 250/50 one puff b. i.d. 2. Levaquin 750 mg p.o. daily for 5 more days. 3. Prednisone 40 mg p.o. daily x5 days, then stop. 4. Potassium 20 mEq p.o. daily. She will continue her Bumex at 1 mg p.o. daily. ADDITIONAL DISCHARGE INSTRUCTIONS: 1. Daily weight, taking extra dose of Bumex in the afternoon if the weight is increasing. 2. Follow up sputum cultures with primary care. Currently, current preliminary sputum is showing Ci trobacter and Klebsiella. 3. Outpatient MRCP to evaluate bile duct dilatation. 4. Stop smoking. 5. Outpatient pulmonary rehab. 6. Followup appointment scheduled with Dr. Garcias. 7. Home oxygen titrate, titrate to 91% to 92%. 8. Home health PT, OT, VNS. Greater than 30 minutes' time was spent arranging this discharge. Patient was seen and examined by fabien clark on day of discharge. /[id number]/MODL
[2018-01-28 12:56] VITALS: BP 94/54
== END 2018-01-28 12:44 | disposition home health service (06) | DRG 189 ==
LOC: F2W 18:40
PROVIDERS: ADMIT Internal Medicine; ATTEND Internal Medicine
DX: J96.21 Acute and chronic respiratory failure with hypoxia (principal); J44.1 Chronic obstructive pulmonary disease with (acute) exacerbation; M06.9 Rheumatoid arthritis, unspecified; F11.20 Opioid dependence, uncomplicated; K83.8 Other specified diseases of biliary tract; I27.20 Pulmonary hypertension, unspecified; I50.30 Unspecified diastolic (congestive) heart failure; G62.9 Polyneuropathy, unspecified; F17.210 Nicotine dependence, cigarettes, uncomplicated; Z96.641 Presence of right artificial hip joint; Z87.01 Personal history of pneumonia (recurrent)
CPT/HCPCS: 97116-GP; 97161-GP; 97165-GO; 97530-GO; 97530-GP; 97535-GO; G8978-GP-CJ; G8979-GP-CI; G8987-GO-CI; G8988-GO-CI; G8989-GO-CI; J0574; J1650; J1956; J7512; Q9967

== ENCOUNTER → 2018-02-28 | Outpatient (CLI) | payer OTHER, MEDICARE | LOC: CIMAGING 14:43 | PROVIDERS: ATTEND Internal Medicine | DX: J43.9 Emphysema, unspecified (principal); R91.8 Other nonspecific abnormal finding of lung field | CPT/HCPCS: 71046-PO ==

== ENCOUNTER → 2018-03-18 | Outpatient (CLI) | payer OTHER, MEDICARE | LOC: CIMAGING 15:34 | PROVIDERS: ATTEND Internal Medicine | DX: J44.1 Chronic obstructive pulmonary disease with (acute) exacerbation (principal); R91.8 Other nonspecific abnormal finding of lung field | CPT/HCPCS: 71046-PO ==

== ENCOUNTER 2018-04-08 20:14 | Inpatient (IN) | payer OTHER, MEDICARE ==
[2018-04-08] MEDS ORDERED: methylPREDNISolone SOD SUCC 125 MG/2 ML VIAL IVP ONE (20:37)
[2018-04-08] MEDS ORDERED: IPRATROPIUM/ALBUTEROL 3 ML DEYVIAL IH ONE ×2 (20:37→20:47)
[2018-04-08] MEDS ORDERED: NS 500 ML IV ONE (20:37)
--- NOTE | 2018-04-08 20:49 | CPEKG ---
Heart Rate: 115 RR Interval: 522 P-R Interval: 140 QRSD Interval: 96 QT Interval: 324 QTC Interval: 448 P [place]: 84 QRS [place]: 107 T Wave [place]: 54 EKG Severity - ABNORMAL ECG - EKG Impression: SINUS TACHYCARDIA EKG Impression: RIGHT ATRIAL ABNORMALITY EKG Impression: RIGHT AXIS DEVIATION EKG Impression: CONSIDER LEFT VENTRICULAR HYPERTROPHY EKG Impression: PROBABLE INFERIOR INFARCT, OLD Electronically Signed By: Kev Epstein 08-Apr-2018 22:42:22
[2018-04-08 20:51] LABS: PLATELET COUNT 286 10^3/uL (150-400)
[2018-04-08] MEDS ORDERED: NS 1,600 ML IV ONE ×2 (20:59)
[2018-04-08 21:05] LABS: INR 0.95 (0.83-1.16); PROTIME(PATIENT) 12.9 SEC (12.0-15.0)
--- NOTE | 2018-04-08 21:43 | EDPHY ---
H & P Stated Complaint: Hypoxia Time Seen by Provider: 04/08/18 20:26 HPI/ROS: Chief Complaint: Shortness of breath HPI: 67-year-old woman with a history of COPD and recurrent pneumonia since November of this year is presenting with worsening shortness of breath over the last 3-4 days. 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 She has continued to have a cough for the last 4 days productive of greenish sputum. Some subjective fevers and chills. No nausea or vomiting. No chest pain. No leg pain or swelling. She has been using her oxygen this evening with no significant relief. At triage patient had an oxygen saturation of 65%. ROS: 10 point Review of Systems is negative except as noted in the HPI. Social History: Longstanding history of smoking, no alcohol, no recreational drug use Family History: non-contributory Physical Exam: Gen: Awake, Alert, patient's in significant respiratory distress. Oxygen saturations 7% on room air, patient's tachypneic and tachycardic HEENT: Nose: no rhinorrhea Eyes: PERRLA, EOMI Mouth: Moist mucosa Neck: Supple, no JVD Chest: nontender, breath sounds are dramatically diminished throughout Heart: S1, S2 normal, no murmur, tachycardic Abd: Soft, non-tender, no guarding Back: no CVA tenderness, no midline tenderness Ext: no edema, non-tender Skin: no rash Neuro: CN II-XII intact, Sensation grossly intact, Strength 5/5 in bilateral upper and lower extremities - Personal History Current Tetanus Diphtheria and Acellular Pertussis (TDAP): Yes - Medical/Surgical History Hx Asthma: No Hx Chronic Respiratory Disease: Yes Hx Diabetes: No Hx Cardiac Disease: No Hx Renal Disease: No Hx Cirrhosis: No Hx Alcoholism: No Hx HIV/AIDS: No Hx Splenectomy or Spleen Trauma: No Other PMH: PMH: PNA, KIDNEY URETER DEFECT. - Social History Smoking Status: Current every day smoker Constitutional: Initial Vital Signs Temperature (C) 36.6 C 04/08/18 20:35 Heart Rate 120 H 04/08/18 20:35 Respiratory Rate 36 H 04/08/18 20:35 Blood Pressure 127/72 H 04/08/18 20:35 O2 Sat (%) 67 L 04/08/18 20:35 O2 Delivery Mode Bi-Pap O2 (L/minute) 15 Allergies/Adverse Reactions: No Known Allergies Allergy (Unverified 04/08/18 20:34) Home Medications: Medication Instructions Recorded Buprenorphine HCl/Naloxone HCl 0.5 each SL BID@,18 12/08/15 [Suboxone 8 mg-2 mg SL Film] Gabapentin [Neurontin 300 MG (*)] 300 mg PO HS 12/08/15 clonazePAM [Klonopin (*)] 0.5 mg PO HS 12/08/15 Albuterol [Proventil Inhaler HFA 1 - 2 puffs IH Q4H PRN 01/23/18 (*)] Bumetanide [Bumex (*)] 1 mg PO DAILY 01/23/18 Cholecalciferol Vit D3 [Vitamin D3 1,000 units PO DAILY 01/23/18 (*)] Herbals/Supplements -Info Only 1 ea PO DAILY 01/23/18 Ipratropium/Albuterol [Duoneb (*)] 3 ml IH Q6H PRN 01/23/18 Multivitamins [Multivitamin (*)] 1 each PO DAILY 01/23/18 Fluticasone/Salmeter 250/50Mcg 1 puffs IH BID #1 disk 01/28/18 [Advair 250/50 (*)] Potassium Cl [Klor-Con 20 meq (*)] 20 meq PO DAILY #30 tab 01/28/18 levOFLOXACIN [levAQUIN (*)] 750 mg PO DAILY #5 tab 01/28/18 predniSONE 40 mg PO DAILY #10 tablet 01/28/18 Medical Decision Making - Diagnostics EKG Interpretation: ECG time 8:46 p.m., sinus tachycardia with a rate of 115, right axis deviation, RVH by a morphology, Q-waves in the inferior leads consistent with an old infarct. Imaging Results: Imaging Impressions Chest X-Ray 04/08/18 21:04 Impression: 1. Mild prominent interstitial markings at the lung bases could represent some mild dependent interstitial edema. With prominence of the pulmonary vasculature centrally, consider mild fluid overload. 2. Hyperexpanded lungs compatible with underlying COPD and emphysema. ED Course/Re-evaluation: 67-year-old woman presenting with COPD exacerbation. She does meet SIRS criteria. Sepsis pathway initiated. She is given a DuoNeb. Solu-Medrol ordered. Patient oxygen saturations 87% on nasal cannula. She has got significant work of breathing. Second DuoNeb ordered. Lactate noted at 2.3. She meets sepsis criteria. IV fluids ordered. Chest x-ray shows perihilar prominence with emphysema, no large focal infiltrate. Patient has improved air movement with dramatic diffuse expiratory wheezing. Her work of breathing is increased and she has have worsening tachypnea. Will start her on BiPAP. I have also ordered ceftriaxone IV. Blood cultures are sent and pending. Will also add magnesium IV. Patient is improved on BiPAP. She is comfortable. She is continuing to get nebulized treatments. Will discussed with hospitalist for admission. Critical Care Time: I spent a total of 40 minutes of critical care time in obtaining history, performing a physical exam, bedside monitoring of interventions, collecting and interpreting tests and discussion with consultants but not including time spent performing procedures. - Data Points Laboratory Results: Laboratory Results 04/08/18 20:30 04/08/18 20:30 04/08/18 04/08/18 04/08/18 20:30 20:30 20:30 WBC 14.77 10^3/uL H 10^3/uL (3.80-9.50) RBC 5.54 10^6/uL H 10^6/uL (4.18-5.33) Hgb 17.0 g/dL H g/dL (12.6-16.3) Hct 52.1 % H % (38.0-47.0) MCV 94.0 fL fL (81.5-99.8) MCH 30.7 pg pg (27.9-34.1) MCHC 32.6 g/dL g/dL (32.4-36.7) RDW 20.0 % H % (11.5-15.2) Plt Count 286 10^3/uL 10^3/uL (150-400) MPV 8.8 fL fL (8.7-11.7) Neut % (Auto) 87.9 % H % (39.3-74.2) Lymph % (Auto) 6.1 % L % (15.0-45.0) [place] % (Auto) 5.1 % % (4.5-13.0) Eos % (Auto) 0.1 % L % (0.6-7.6) Baso % (Auto) 0.3 % % (0.3-1.7) Nucleat RBC Rel Count 0.0 % % (0.0-0.2) Absolute Neuts (auto) 12.99 10^3/uL H 10^3/uL (1.70-6.50) Absolute Lymphs (auto) 0.90 10^3/uL L 10^3/uL (1.00-3.00) Absolute Monos (auto) 0.75 10^3/uL 10^3/uL (0.30-0.80) Absolute Eos (auto) 0.01 10^3/uL L 10^3/uL (0.03-0.40) Absolute Basos (auto) 0.04 10^3/uL 10^3/uL (0.02-0.10) Absolute Nucleated RBC 0.00 10^3/uL 10^3/uL (0-0.01) Immature Gran % 0.5 % % (0.0-1.1) Immature Gran # 0.08 10^3/uL 10^3/uL (0.00-0.10) Platelet Estimate ADEQUATE (ADEQ) Polychromasia 1+ H PT 12.9 SEC SEC (12.0-15.0) INR 0.95 (0.83-1.16) APTT 25.2 SEC SEC (23.0-38.0) VBG Lactic Acid Sodium 140 mEq/L mEq/L (135-145) Potassium 3.4 mEq/L mEq/L (3.3-5.0) Chloride 92 mEq/L L mEq/L (97-110) Carbon Dioxide 37 mEq/l H mEq/l (22-31) Anion Gap 11 mEq/L mEq/L (8-16) BUN 28 mg/dL H mg/dL (7-23) Creatinine 0.7 mg/dL mg/dL (0.6-1.0) Estimated GFR > 60 Glucose 107 mg/dL H mg/dL (70-100) Calcium 10.7 mg/dL H mg/dL (8.5-10.4) Phosphorus 4.5 mg/dL mg/dL (2.5-4.5) Total Bilirubin 1.2 mg/dL mg/dL (0.1-1.4) 04/08/18 20:30 WBC RBC Hgb Hct MCV MCH MCHC RDW Plt Count MPV Neut % (Auto) Lymph % (Auto) [place] % (Auto) Eos % (Auto) Baso % (Auto) Nucleat RBC Rel Count Absolute Neuts (auto) Absolute Lymphs (auto) Absolute Monos (auto) Absolute Eos (auto) Absolute Basos (auto) Absolute Nucleated RBC Immature Gran % Immature Gran # Platelet Estimate Polychromasia PT INR APTT VBG Lactic Acid 2.3 mmol/L H mmol/L (0.7-2.1) Sodium Potassium Chloride Carbon Dioxide Anion Gap BUN Creatinine Estimated GFR Glucose Calcium Phosphorus Total Bilirubin Medications Given: Sodium Chloride (Ns) 1,600 mls @ 266.6666 mls/hr 30 ml/kg infuse over 6 hr ( 1600 ml) IV EDNOW ONE PRN Reason: Protocol Stop: 04/09/18 02:58 Last Admin: 04/08/18 21:30 Dose: 1,600 mls Magnesium Sulfate/Dextrose (Magnesium Sulf 1 Gm (Premix)) 100 mls @ 100 mls/hr IV EDNOW ONE Stop: 04/08/18 22:52 Last Admin: 04/08/18 22:00 Dose: 100 mls Discontinued Medications Albuterol/Ipratropium (Duoneb) 3 ml IH EDNOW ONE Stop: 04/08/18 20:38 Last Admin: 04/08/18 20:42 Dose: 3 ml Albuterol/Ipratropium (Duoneb) 3 ml IH EDNOW ONE Stop: 04/08/18 20:48 Last Admin: 04/08/18 20:50 Dose: 3 ml Sodium Chloride (Ns) 500 mls @ 1,000 mls/hr IV EDNOW ONE PRN Reason: Protocol Stop: 04/08/18 21:06 Last Admin: 04/08/18 20:42 Dose: 500 mls Sodium Chloride (Ns) 1,600 mls @ 3,200 mls/hr 30 ml/kg infuse over 30 min ( 1600 ml) IV EDNOW ONE PRN Reason: Protocol Stop: 04/08/18 21:28 Last Admin: 04/08/18 21:10 Dose: 1,600 mls Ceftriaxone Sodium/Dextrose (Rocephin 1 Gm (Premix)) 50 mls @ 100 mls/hr IV EDNOW ONE PRN Reason: Protocol Stop: 04/08/18 22:13 Last Admin: 04/08/18 21:48 Dose: 50 mls Methylprednisolone Sodium Succinate (Solu-Medrol) 125 mg IVP EDNOW ONE Stop: 04/08/18 20:38 Last Admin: 04/08/18 20:42 Dose: 125 mg Departure - Departure Disposition: [facility] Inpatient Acute Clinical Impression: Chronic obstructive pulmonary disease with acute exacerbation Condition: Serious
[2018-04-08] MEDS ORDERED: MAGNESIUM SULF 1 GM/DEXTROSE 100 ML IV ONE (21:53)
[2018-04-08] MEDS ORDERED: AZITHROMYCIN IV 500 MG in NS 250 ML IV ONE (22:07)
[2018-04-08] MEDS ORDERED: ACETAMINOPHEN 325 MG TAB PO PRN (22:38)
[2018-04-08] MEDS ORDERED: ONDANSETRON 4 MG/2 ML VIAL IVP PRN (22:38)
[2018-04-08] MEDS ORDERED: ONDANSETRON DISINTEGRATING 4 MG TAB PO PRN (22:38)
--- NOTE | 2018-04-09 00:08 | PDGENHP ---
History and Physical - Chief Complaint Shorntess of breath - History of Present Illness 67 yo F w/ hx of COPD, RA, and pHTN presents with shortness of breath. Patient has last hospitalized here for COPD exacerbation and CHF exacerbation in January of this year. She tells me she has not felt back to baseline since this hospitalization. She has been treated as an outpatient for possible pneumonia on 2 or 3 occasions. Over the last 3-4 days, her cough and shortness of breath have worsened dramatically. Her cough is now very productive of green sputum. Upon arrival to the ED she was 65% on RA. She also reports a temperature of 101 at home. 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 Of note, she quite smoking 2 weeks ago. However, she has only been using O2 at night (4L) She does not have a pulse ox at home to check her O2 sats during the day. Case was discussed with Dr. Epstein; previous records reviewed including D/C summary by Dr. Jeffrey dated 01/28/18 detailing last admission for COPD exacerbation. History Information - Allergies/Home Medication List Allergies/Adverse Reactions: No Known Allergies Allergy (Unverified 04/08/18 20:34) Home Medications: Buprenorphine HCl/Naloxone HCl [Suboxone 8 mg-2 mg SL Film] 0.5 each SL BID@12/08/15 [Last Taken 01/23/18 06:00] Gabapentin [Neurontin 300 MG (*)] 300 mg PO HS 12/08/15 [Last Taken 01/22/18] clonazePAM [Klonopin (*)] 0.5 mg PO HS 12/08/15 [Last Taken 01/22/18] Albuterol [Proventil Inhaler HFA (*)] 1 - 2 puffs IH Q4H PRN 01/23/18 [Last Taken 01/23/18 15:00] Bumetanide [Bumex (*)] 1 mg PO DAILY 01/23/18 [Last Taken 01/23/18 06:00] Cholecalciferol Vit D3 [Vitamin D3 (*)] 1,000 units PO DAILY 01/23/18 [Last Taken 01/23/18] Herbals/Supplements -Info Only 1 ea PO DAILY 01/23/18 [Last Taken 01/23/18] Ipratropium/Albuterol [Duoneb (*)] 3 ml IH Q6H PRN 01/23/18 [Last Taken 05:00] Multivitamins [Multivitamin (*)] 1 each PO DAILY 01/23/18 [Last Taken 01/23/18] I have personally reviewed and updated: family history, medical history - Past Medical History CHF (Suspected diastolic CHF from 2 years prior, has not seen a stiff leg operator), COPD Additional medical history: Rheumatoid arthritis with continuous opiate dependency. Peripheral neuropathy - Surgical History Additional surgical history: Right total hip replacement 1999 - Family History Additional family history: No family history of venous thromboembolism or coronary artery disease - Social History Smoking Status: Current every day smoker Additional social history: Independent in ADLs Review of Systems Review of Systems: ROS: 10pt was reviewed & negative except for what was stated in HPI & below Physical Exam Physical Exam: Temp Pulse Resp BP Pulse Ox 37.2 C 96 19 108/57 L 95 04/08/18 23:10 04/08/18 23:10 04/08/18 23:10 04/08/18 23:10 04/08/18 23:10 O2 (L/minute) 15 Constitutional: not in pain, uncomfortable Eyes: PERRL, EOMI Ears, Nose, Mouth, Throat: moist mucous membranes, no oral mucosal ulcers Cardiovascular: regular rate and rhythym, no murmur, rub, or gallop, No edema Respiratory: reduced air movement, expiratory wheeze, respiratory distress Gastrointestinal: normoactive bowel sounds, soft, non-tender abdomen Skin: warm, normal color Musculoskeletal: full muscle strength, no muscle tenderness, other (Joint deformities in hands, no active inflammation noted) Neurologic: AAOx3, CN II-XII Intact Psychiatric: interacting appropriately, not anxious Lab Data & Imaging Review 04/08/18 20:30 04/08/18 20:30 WBC 14.77 10^3/uL (3.80-9.50) H 04/08/18 20:30 RBC 5.54 10^6/uL (4.18-5.33) H 04/08/18 20:30 Hgb 17.0 g/dL (12.6-16.3) H 04/08/18 20:30 Hct 52.1 % (38.0-47.0) H 04/08/18 20:30 MCV 94.0 fL (81.5-99.8) 04/08/18 20:30 MCH 30.7 pg (27.9-34.1) 04/08/18 20:30 MCHC 32.6 g/dL (32.4-36.7) 04/08/18 20:30 RDW 20.0 % (11.5-15.2) H 04/08/18 20:30 Plt Count 286 10^3/uL (150-400) 04/08/18 20:30 MPV 8.8 fL (8.7-11.7) 04/08/18 20:30 Neut % (Auto) 87.9 % (39.3-74.2) H 04/08/18 20:30 Lymph % (Auto) 6.1 % (15.0-45.0) L 04/08/18 20:30 [place] % (Auto) 5.1 % (4.5-13.0) 04/08/18 20:30 Eos % (Auto) 0.1 % (0.6-7.6) L 04/08/18 20:30 Baso % (Auto) 0.3 % (0.3-1.7) 04/08/18 20:30 Nucleat RBC Rel Count 0.0 % (0.0-0.2) 04/08/18 20:30 Absolute Neuts (auto) 12.99 10^3/uL (1.70-6.50) H 04/08/18 20:30 Absolute Lymphs (auto) 0.90 10^3/uL (1.00-3.00) L 04/08/18 20:30 Absolute Monos (auto) 0.75 10^3/uL (0.30-0.80) 04/08/18 20:30 Absolute Eos (auto) 0.01 10^3/uL (0.03-0.40) L 04/08/18 20:30 Absolute Basos (auto) 0.04 10^3/uL (0.02-0.10) 04/08/18 20:30 Absolute Nucleated RBC 0.00 10^3/uL (0-0.01) 04/08/18 20:30 Immature Gran % 0.5 % (0.0-1.1) 04/08/18 20:30 Immature Gran # 0.08 10^3/uL (0.00-0.10) 04/08/18 20:30 Platelet Estimate ADEQUATE (ADEQ) 04/08/18 20:30 Polychromasia 1+ H 04/08/18 20:30 PT 12.9 SEC (12.0-15.0) 04/08/18 20:30 INR 0.95 (0.83-1.16) 04/08/18 20:30 APTT 25.2 SEC (23.0-38.0) 04/08/18 20:30 VBG Lactic Acid 0.6 mmol/L (0.7-2.1) L 04/08/18 22:30 Sodium 140 mEq/L (135-145) 04/08/18 20:30 Potassium 3.4 mEq/L (3.3-5.0) 04/08/18 20:30 Chloride 92 mEq/L (97-110) L 04/08/18 20:30 Carbon Dioxide 37 mEq/l (22-31) H 04/08/18 20:30 Anion Gap 11 mEq/L (8-16) 04/08/18 20:30 BUN 28 mg/dL (7-23) H 04/08/18 20:30 Creatinine 0.7 mg/dL (0.6-1.0) 04/08/18 20:30 Estimated GFR > 60 04/08/18 20:30 Glucose 107 mg/dL (70-100) H 04/08/18 20:30 Calcium 10.7 mg/dL (8.5-10.4) H 04/08/18 20:30 Phosphorus 4.5 mg/dL (2.5-4.5) 04/08/18 20:30 Total Bilirubin 1.2 mg/dL (0.1-1.4) 04/08/18 20:30 Imaging Review: Imaging Impressions Chest X-Ray 04/08/18 21:04 Impression: 1. Mild prominent interstitial markings at the lung bases could represent some mild dependent interstitial edema. With prominence of the pulmonary vasculature centrally, consider mild fluid overload. 2. Hyperexpanded lungs compatible with underlying COPD and emphysema. Visualized and Interpreted EKG results: Yes EKG Interpretation: Positive for: normal sinsus rhythm, other (Sinus tach) Assessment & Plan Assessment: 67 yo F w/ COPD, dCHF, pHTN, and RA presents with acute COPD exacerbation. Plan: 1. Acute COPD exacerbation - This is her second serious exacerbation requiring hospitalization in the last 3 months. Trigger on this occasion appears infectious (productive cough, fever, elevated WBC); it is unclear if another additional factor is contributing to her frequent decompensation. She stopped smoking 2 weeks ago but only wears her O2 at night. She does not have a pulse ox at home so she does not know if she is chronically hypoxic. - Admit to SDU for close monitoring - Initially requiring BIPAP but now on facemask - Duonebs QID trey + albuterol q2h PRN - Prednisone x5 days - Will continue CTX/Azithro for full CAP coverage for now noting dramatic presentation - Procalcitonin, sputum culture, blood culture, respiratory PCR, and legionella/ Strep urine Ags ordered - Will order D-dimer to screen for PE, CTA if positive - Would benefit from addition of Spiriva at discharge 2. Acute on chronic HRF - Currently wearing 4 L/min O2 nocturnally. She was saturating 65% on RA upon arrival in the ED. - Acute management as above - Incentive spirometer - Wean O2 as able - I suspect she will need continuous O2 at discharge 3. dCHF - Appears euvolemic on exam during this admission; she has been compliant with her home Bumex. 4. pHTN - RVSP 55 mm Hg on most recent TTE. 5. RA - Not on medications, denies symptoms. Diet - Regular Code - Full Ppx - LMWH Dispo - Admit under observation status
[2018-04-09] MEDS ORDERED: IOPAMIDOL (ISOVUE 370) 100 ML BTL IV ONE (00:47)
[2018-04-09] MEDS: IPRATROPIUM/ALBUTEROL 3 ML DEYVIAL IH SCH ×4 (05:53→20:45)
[2018-04-09 06:10] LABS: PLATELET COUNT 225 10^3/uL (150-400)
[2018-04-09] MEDS: AZITHROMYCIN 250 MG TAB PO SCH (08:25)
[2018-04-09] MEDS: predniSONE 20 MG TAB PO SCH (08:25)
[2018-04-09] MEDS: ENOXAPARIN 40 MG/0.4 ML SYR SC SCH (08:25)
[2018-04-09] MEDS: ALBUTEROL 3 ML DEYVIAL IH PRN (08:28)
[2018-04-09] MEDS ORDERED: guaiFENesin 200 MG TAB PO PRN (09:06)
--- NOTE | 2018-04-09 09:10 | HOSPPROG ---
Hospitalist Progress Note Assessment/Plan: #COPD exacerbation: +Rhino/entero. Will cover CAP. Prednisone, nebs -Bipap this morning #Pulm HTN: FU Dr. Hamilton outpatient #Lactic acidosis: resolved with IVFs #Leukocytosis: CAP, sputum/blood cultures #Acute on chronic hypoxemic resp failure: COPD exacerbation, Bipap #Chronic opioid dependency: home meds #Diet: regular #DVT ppx: Lovenox #Disp: cont inpatient admission for acute COPD exacerbation, Bipap, abx Subjective: productive green cough Objective: Vital Signs Temp Pulse Resp BP Pulse Ox 36.2 C 68 21 H 97/52 L 98 04/09/18 07:55 04/09/18 07:55 04/09/18 07:55 04/09/18 07:55 04/09/18 07:55 Microbiology 04/08/18 23:15 - Final Sputum, Expectorated Laboratory Results 04/09/18 05:30 04/09/18 05:30 04/08/18 04/09/18 04/10/18 05:59 05:59 05:59 Intake Total 2955 Output Total 600 500 Balance 2355 -500 PT 12.9 SEC (12.0-15.0) 04/08/18 20:30 INR 0.95 (0.83-1.16) 04/08/18 20:30 - Time Spent With Patient Time Spent with Patient: greater than 35 minutes Time Spent with Patient: Greater than 35 minutes spent on this patients care, greater than 50% of time spent counseling, educating, and coordinating care regarding the above mentioned plan. - Physical Exam Constitutional: uncomfortable, other (thin) Eyes: PERRL Ears, Nose, Mouth, Throat: dry mucous membranes Cardiovascular: regular rate and rhythym Respiratory: reduced air movement, expiratory wheeze, rhonchi, other (using accessory muscles) Genitourinary: no bladder fullness Skin: warm Musculoskeletal: full muscle strength Neurologic: AAOx3 Psychiatric: interacting appropriately ICD10 Worksheet Patient Problems: Problems Problem Status Onset Chronic Disease Mgmt/Transitional Care Acute Pneumonia and influenza Acute Hypoxemia Acute Respiratory distress Acute Acute exacerbation of congestive heart failure Acute Peripheral edema Acute Chronic obstructive pulmonary disease with acute exacerbation Acute
[2018-04-09] MEDS: FLUTICASONE/SALMETER 250/50MCG DISKUS IH SCH ×2 (09:45→20:45)
[2018-04-09] MEDS: VARENICLINE TARTRATE 1 MG TAB PO SCH ×2 (09:46→20:32)
[2018-04-09] MEDS: BUMETANIDE 1 MG TAB PO SCH (09:46)
--- NOTE | 2018-04-09 10:06 | GCON ---
[f rep st] CONSULTATION ENTRY EXAMINER CONSULTATION REASON FOR ADMISSION: Exacerbation of chronic obstructive pulmonary disease, pneumonia. HISTORY OF PRESENT ILLNESS: The patient is a very pleasant 67-year-old white female with a past medi princess history including pulmonary hypertension, rheumatoid arthritis, and emphysema. She presents with complaints of worsening breathlessness. She was scheduled to see Dr. Ravi Hamilton in the office tor[place] but was unable to make it. She states she has been breathless for over 3 months duration and rece ntly she had a cough productive of greenish sputum, as well as low-grade temperature. She denies any chest pain, pleuritic-type chest pain or angina equivalent. There is no fever or night sweats. Sin ce admission, she feels somewhat improved. PAST MEDICAL HISTORY: Again, significant for rheumatoid arthritis, pulmonary hypertension, emphysema . ALLERGIES: No allergies to medications. SOCIAL HISTORY: Previous heavy smoker, none for the last 2 weeks. She denies any alcohol use. 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 She is single with 2 children. MEDICATIONS: Include Suboxone, Neurontin, Klonopin, Proventil, Bumex, vitamin D. REVIEW OF SYSTEMS: 10-point review of systems was performed and is negative with the exception of wh at is listed in HPI. PHYSICAL EXAM: VITAL SIGNS: Blood pressure is 97/52, pulse 68, respirations 21, temperature 36.2, o xygen saturation 98% on 8 L. GENERAL: She is a thin, somewhat malnourished elderly white female who is resting comfortably on supplemental oxygen. HEENT: Eyes, PERRL. EOMI. Throat shows no erythem a or tonsillar hypertrophy. NECK: Supple. There is no cervical adenopathy. HEART: Regular rate a nd rhythm without murmurs, rubs, gallops. LUNGS: Diminished breath sounds. Significant prolongatio n expiratory phase. A few bibasilar crackles. ABDOMEN: Soft, nontender. Bowel sounds are present in all 4 quadrants. EXTREMITIES: No clubbing, cyanosis, or edema. LABORATORY DATA: White count 17.4, hemoglobin 13.5, hematocrit 41, platelet count 225. Sodium 136, potassium 4.2, chloride 102, CO2 32, BUN 20, creatinine 0.4, glucose is 122. Urinalysis negative. IMAGING: Chest x-ray shows hyperinflated lungs, and a hint of bibasilar infiltrates. CT angiogram o f the chest reveals emphysematous changes, bronchitis and bilateral nodular infiltrates in both. IMPRESSION: 1. Emphysema. Severity is unclear. 2. Acute exacerbation of her emphysema. 3. Pneumonia. Human metapneumovirus. 4. Acute respiratory failure secondary to above. 5. Rheumatoid arthritis. 6. History of pulmonary hypertension. RECOMMENDATIONS: 1. Agree with current nebulizer treatments. 2. IV antibiotics are appropriate. 3. Continue her home medications. 4. Agree with nebulization with both albuterol and Atrovent. 5. Agree with current prednisone dosage. 6. DVT and PE prophylaxis. 7. Stress ulcer prophylaxis. 8. Early ambulation. /[id number]/MODL
[2018-04-09] MEDS: MULTIVITAMINS 1 EACH TAB PO SCH (11:15)
[2018-04-09] MEDS: CHOLECALCIFEROL VIT D3 1,000 UNITS TAB PO SCH (11:15)
[2018-04-09] MEDS: POTASSIUM CL 20 MEQ TAB PO SCH (11:15)
[2018-04-09] MEDS: VITAMIN B COMPLEX 1 EA CAP/TAB PO SCH (11:15)
[2018-04-09] MEDS: LORazepam 0.5 MG TAB PO PRN (11:23)
--- NOTE | 2018-04-09 11:36 | PDMN ---
Medical Necessity Medical necessity: est los>2mn for COPD exacerbation r/t infection w/productive cough, fever, and elevated wbc, and acute on chronic HRF W/O2 sat 65 RA; admit to ICU/SDU for close monitoring, BiPAP initially and following night, scheduled nebs, IV abx; comorbid dCHF, pulmonary htn; per order 04/08/18 and progress note 04/09/18
--- NOTE | 2018-04-09 13:58 | ASMTCMCOM ---
CM Note CM Note Notes: 67yr old female admitted for SOB. She has a Hx of CHF, COPD, RA-opiod dependent, Peripheral vascular dis. Patient found to have acute COPD exacerbation. Reportd that she quit smoking 2 wks ago. Patient lives independently has O2 at home and a son in the area. No therapies ordered. May not have discharge needs. Date Signed: 04/09/2018 01:58 PM Electronically Signed By:Leah Samano LCSW
[2018-04-09] MEDS: GABAPENTIN 300 MG CAP PO SCH (20:32)
[2018-04-09] MEDS: clonazePAM 0.5 MG TAB PO SCH (20:32)
[2018-04-10] MEDS: ALBUTEROL 3 ML DEYVIAL IH PRN (00:55)
[2018-04-10] MEDS: IPRATROPIUM/ALBUTEROL 3 ML DEYVIAL IH SCH ×4 (05:35→20:50)
--- NOTE | 2018-04-10 08:38 | HOSPPROG ---
Hospitalist Progress Note Assessment/Plan: #COPD exacerbation: +Rhino/entero. Nebs. Off Bipap -Day 3/ abx & pred #Pulm HTN: FU Dr. Hamilton outpatient #Lactic acidosis: resolved with IVFs #Leukocytosis: CAP, sputum/blood cultures pending #Acute on chronic hypoxemic resp failure: COPD exacerbation, Bipap #Chronic opioid dependency: home meds #Diet: regular #DVT ppx: Lovenox #Disp: cont inpatient admission for acute COPD exacerbation, transfer to floor Subjective: breathing less labored today Objective: Vital Signs Temp Pulse Resp BP Pulse Ox 36.9 C 86 20 117/55 L 92 04/10/18 08:00 04/10/18 08:00 04/10/18 08:00 04/10/18 08:00 04/10/18 08:00 Microbiology 04/08/18 23:15 - Final Sputum, Expectorated Laboratory Results 04/10/18 05:00 04/09/18 05:30 04/09/18 04/10/18 04/11/18 05:59 05:59 05:59 Intake Total 2955 2100 Output Total 600 2600 Balance 2355 -500 PT 12.9 SEC (12.0-15.0) 04/08/18 20:30 INR 0.95 (0.83-1.16) 04/08/18 20:30 - Time Spent With Patient Time Spent with Patient: greater than 35 minutes Time Spent with Patient: Greater than 35 minutes spent on this patients care, greater than 50% of time spent counseling, educating, and coordinating care regarding the above mentioned plan. - Physical Exam Constitutional: cachectic Eyes: PERRL Ears, Nose, Mouth, Throat: moist mucous membranes Cardiovascular: regular rate and rhythym Respiratory: other (less labored breathing. Poor air movement, expiratory wheeze ) Gastrointestinal: normoactive bowel sounds Genitourinary: no bladder fullness Skin: warm Musculoskeletal: full muscle strength Neurologic: CN II-XII Intact Psychiatric: interacting appropriately ICD10 Worksheet Patient Problems: Problems Problem Status Onset Chronic Disease Mgmt/Transitional Care Acute Chronic obstructive pulmonary disease with acute exacerbation Acute Acute exacerbation of congestive heart failure Acute Hypoxemia Acute Peripheral edema Acute Pneumonia and influenza Acute Respiratory distress Acute
--- NOTE | 2018-04-10 08:41 | PDINTPN ---
Portuguese Tutor Progress Note Assessment/Plan: Assessment/plan: * Severe emphysema-improved -continue current nebs and oral steroids * Pneumonia-human metapneumovirus -continue current antibiotics * Acute respiratory failure-secondary to above. Markedly improved. -discontinue BiPAP * Rheumatoid arthritis * VT prophylaxis * Stress ulcer prophylaxis * Nutrition-adequate * Out of bed to chair and begin ambulation today * Disposition-okay for transfer to medical surgical floor 04/10/18 08:40 Subjective: Sitting up in bed. Resting comfortably. Breathing much easier. Objective: Vital Signs Temp Pulse Resp BP Pulse Ox 36.9 C 86 20 117/55 L 92 04/10/18 08:00 04/10/18 08:00 04/10/18 08:00 04/10/18 08:00 04/10/18 08:00 Microbiology 04/08/18 23:15 - Final Sputum, Expectorated Laboratory Results 04/10/18 05:00 04/09/18 05:30 04/09/18 04/10/18 04/11/18 05:59 05:59 05:59 Intake Total 2955 2100 Output Total 600 2600 Balance 2355 -500 PT 12.9 SEC (12.0-15.0) 04/08/18 20:30 INR 0.95 (0.83-1.16) 04/08/18 20:30 - Time Spent With Patient Time Spent With Patient: 35 min of time spent with patient, over 1/2 involved with coordination of care or counseling Physical Exam - Physical Exam General Appearance: alert, no apparent distress EENT: PERRL/EOMI Neck: non-tender, full range of motion, supple, normal inspection Respiratory: decreased breath sounds, prolonged expiration, No respiratory distress, No wheezing Cardiac/Chest: normal peripheral pulses, regular rate, rhythm Peripheral Pulses: 2+: carotid (R), carotid (L), femoral (R), femoral (L), dorsalis-pedis (R), dorsalis-pedis (L) Abdomen: normal bowel sounds, non-tender, soft Pelvic Exam: deferred Rectal: deferred Skin: normal color, warm/dry Extremities: normal range of motion, non-tender, normal inspection, normal capillary refill Neuro/Psych: no motor/sensory deficits, alert, normal mood/affect, oriented x 3 ICD10 Worksheet Patient Problems: Problems Problem Status Onset Chronic Disease Mgmt/Transitional Care Acute Chronic obstructive pulmonary disease with acute exacerbation Acute Acute exacerbation of congestive heart failure Acute Hypoxemia Acute Peripheral edema Acute Pneumonia and influenza Acute Respiratory distress Acute
[2018-04-10] MEDS: POTASSIUM CL 20 MEQ TAB PO SCH (08:59)
[2018-04-10] MEDS: MULTIVITAMINS 1 EACH TAB PO SCH (08:59)
[2018-04-10] MEDS: AZITHROMYCIN 250 MG TAB PO SCH (08:59)
[2018-04-10] MEDS: VITAMIN B COMPLEX 1 EA CAP/TAB PO SCH (08:59)
[2018-04-10] MEDS: CHOLECALCIFEROL VIT D3 1,000 UNITS TAB PO SCH (08:59)
[2018-04-10] MEDS: ENOXAPARIN 40 MG/0.4 ML SYR SC SCH (09:00)
[2018-04-10] MEDS: predniSONE 20 MG TAB PO SCH (09:00)
[2018-04-10] MEDS: FLUTICASONE/SALMETER 250/50MCG DISKUS IH SCH ×2 (09:00→20:44)
[2018-04-10] MEDS: VARENICLINE TARTRATE 1 MG TAB PO SCH (09:00)
[2018-04-10] MEDS: BUMETANIDE 1 MG TAB PO SCH (09:00)
[2018-04-10] MEDS: VARENICLINE TARTRATE 0.5 MG TAB PO SCH (20:43)
[2018-04-10] MEDS: clonazePAM 0.5 MG TAB PO SCH (20:43)
[2018-04-10] MEDS: GABAPENTIN 300 MG CAP PO SCH (20:43)
[2018-04-10] MEDS ORDERED: VARENICLINE TARTRATE 1 MG TAB PO SCH (21:00)
[2018-04-11] MEDS: IPRATROPIUM/ALBUTEROL 3 ML DEYVIAL IH SCH ×4 (05:04→22:10)
--- NOTE | 2018-04-11 11:09 | SOAPPROG ---
SOAP Progress Note Assessment/Plan: Assessment/plan: * Severe oxygen dependent emphysema-improved -continue current nebs and oral steroids * Pneumonia-human metapneumovirus/Haemophilus -continue current antibiotics * Acute respiratory failure-secondary to above. Markedly improved. -will increased pulmonary toilet * Rheumatoid arthritis * VT prophylaxis * Stress ulcer prophylaxis * Nutrition-adequate * Out of bed to chair and begin ambulation today * Disposition-likely require hospitalization for a few more days Subjective: Looks and feels markedly improved. Becomes markedly winded with any form of exertion. Objective: Vital Signs Temp Pulse Resp BP Pulse Ox 36.8 C 70 16 110/59 L 94 04/11/18 09:44 04/11/18 09:44 04/11/18 09:44 04/11/18 09:44 04/11/18 09:44 Microbiology 04/08/18 23:15 - Final Sputum, Expectorated Sputum Culture - Final Haemophilus Influenzae Laboratory Results 04/10/18 05:00 04/09/18 05:30 04/10/18 04/11/18 04/12/18 05:59 05:59 05:59 Intake Total 2100 550 Output Total 2600 Balance -500 550 PT 12.9 SEC (12.0-15.0) 04/08/18 20:30 INR 0.95 (0.83-1.16) 04/08/18 20:30 Laboratory Results 04/10/18 05:00 04/09/18 05:30 04/08/18 23:15 - Final Sputum, Expectorated Sputum Culture - Final Haemophilus Influenzae 04/08/18 21:00 Respiratory Panel (PCR) - Final Nasal, Sinus - [place] Viral Transport Human Rhinovirus/Enterovirus - Time Spent With Patient Time Spent With Patient: 25 min of time spent with patient, over 1/2 involved with coordination of care or counseling Physical Exam - Physical Exam General Appearance: WD/WN, alert, no apparent distress EENT: PERRL/EOMI Neck: non-tender, full range of motion, supple, normal inspection Respiratory: decreased breath sounds, prolonged expiration, No respiratory distress, No wheezing Cardiac/Chest: normal peripheral pulses, regular rate, rhythm Peripheral Pulses: 2+: carotid (R), carotid (L), femoral (R), femoral (L), dorsalis-pedis (R), dorsalis-pedis (L) Abdomen: normal bowel sounds, non-tender, soft Pelvic Exam: deferred Rectal: deferred Skin: normal color, warm/dry Extremities: normal range of motion, non-tender, normal inspection, normal capillary refill Neuro/Psych: no motor/sensory deficits, alert, normal mood/affect, oriented x 3 ICD10 Worksheet Patient Problems: Problems Problem Status Onset Chronic Disease Mgmt/Transitional Care Acute Chronic obstructive pulmonary disease with acute exacerbation Acute Acute exacerbation of congestive heart failure Acute Hypoxemia Acute Peripheral edema Acute Pneumonia and influenza Acute Respiratory distress Acute
--- NOTE | 2018-04-11 11:36 | HOSPPROG ---
Hospitalist Progress Note Assessment/Plan: #COPD exacerbation: +Rhino/entero. Nebs. Off Bipap -Cont steroids #Pulm HTN: FU Dr. Hamilton outpatient #Lactic acidosis: resolved with IVFs #Leukocytosis: CAP -Leukocytosis is improving -cont Rocephin/Azithromycin. #Acute on chronic hypoxemic resp failure: COPD exacerbation, Bipap -Back to baseline, but still very SOB #Chronic opioid dependency: home meds #Diet: regular #DVT ppx: Lovenox #Disp: cont inpatient admission for acute COPD exacerbation Plan: overall improving cont steroids/abx recheck CXR tomorrow Leukocytosis is improving Subjective: Feels better, but still SOB. No pedal edema Objective: Vital Signs Temp Pulse Resp BP Pulse Ox 36.8 C 70 16 110/59 L 94 04/11/18 09:44 04/11/18 09:44 04/11/18 09:44 04/11/18 09:44 04/11/18 09:44 Microbiology 04/08/18 23:15 - Final Sputum, Expectorated Sputum Culture - Final Haemophilus Influenzae Laboratory Results 04/10/18 05:00 04/09/18 05:30 04/10/18 04/11/18 04/12/18 05:59 05:59 05:59 Intake Total 2100 550 Output Total 2600 Balance -500 550 PT 12.9 SEC (12.0-15.0) 04/08/18 20:30 INR 0.95 (0.83-1.16) 04/08/18 20:30 - Physical Exam Constitutional: no apparent distress Eyes: PERRL Ears, Nose, Mouth, Throat: moist mucous membranes Cardiovascular: regular rate and rhythym, No edema Respiratory: no respiratory distress, reduced air movement, rhonchi Gastrointestinal: normoactive bowel sounds, soft, non-tender abdomen Skin: warm Musculoskeletal: generalized weakness Neurologic: AAOx3 Psychiatric: interacting appropriately, not anxious, not encephalopathic Lymph, Heme, Immunologic: No petechiae ICD10 Worksheet Patient Problems: Problems Problem Status Onset Chronic Disease Mgmt/Transitional Care Acute Chronic obstructive pulmonary disease with acute exacerbation Acute Acute exacerbation of congestive heart failure Acute Hypoxemia Acute Peripheral edema Acute Pneumonia and influenza Acute Respiratory distress Acute
[2018-04-11] MEDS: predniSONE 20 MG TAB PO SCH (11:52)
[2018-04-11] MEDS: BUMETANIDE 1 MG TAB PO SCH (11:52)
[2018-04-11] MEDS: AZITHROMYCIN 250 MG TAB PO SCH (11:53)
[2018-04-11] MEDS: CHOLECALCIFEROL VIT D3 1,000 UNITS TAB PO SCH (11:53)
[2018-04-11] MEDS: MULTIVITAMINS 1 EACH TAB PO SCH (11:53)
[2018-04-11] MEDS: VITAMIN B COMPLEX 1 EA CAP/TAB PO SCH (11:53)
[2018-04-11] MEDS: POTASSIUM CL 20 MEQ TAB PO SCH (11:53)
[2018-04-11] MEDS: ENOXAPARIN 40 MG/0.4 ML SYR SC SCH (11:54)
[2018-04-11] MEDS: VARENICLINE TARTRATE 0.5 MG TAB PO SCH ×2 (11:54→21:41)
[2018-04-11] MEDS: FLUTICASONE/SALMETER 250/50MCG DISKUS IH SCH ×2 (11:55→20:57)
[2018-04-11] MEDS: GABAPENTIN 300 MG CAP PO SCH (20:56)
[2018-04-11] MEDS: clonazePAM 0.5 MG TAB PO SCH (20:56)
[2018-04-11] MEDS: VARENICLINE TARTRATE 1 MG TAB PO SCH (21:40)
[2018-04-12 04:38] LABS: PLATELET COUNT 243 10^3/uL (150-400)
[2018-04-12] MEDS: IPRATROPIUM/ALBUTEROL 3 ML DEYVIAL IH SCH ×4 (05:35→20:34)
[2018-04-12] MEDS: FLUTICASONE/SALMETER 250/50MCG DISKUS IH SCH ×2 (09:50→20:34)
[2018-04-12] MEDS: BUMETANIDE 1 MG TAB PO SCH (10:52)
[2018-04-12] MEDS: VITAMIN B COMPLEX 1 EA CAP/TAB PO SCH (10:53)
[2018-04-12] MEDS: AZITHROMYCIN 250 MG TAB PO SCH (10:53)
[2018-04-12] MEDS: CHOLECALCIFEROL VIT D3 1,000 UNITS TAB PO SCH (10:53)
[2018-04-12] MEDS: POTASSIUM CL 20 MEQ TAB PO SCH (10:53)
[2018-04-12] MEDS: predniSONE 20 MG TAB PO SCH (10:53)
[2018-04-12] MEDS: MULTIVITAMINS 1 EACH TAB PO SCH (10:53)
[2018-04-12] MEDS: ENOXAPARIN 40 MG/0.4 ML SYR SC SCH (10:54)
[2018-04-12] MEDS: VARENICLINE TARTRATE 1 MG TAB PO SCH ×2 (10:54→20:05)
--- NOTE | 2018-04-12 12:13 | HOSPPROG ---
Hospitalist Progress Note Assessment/Plan: #COPD exacerbation: +Rhino/entero. Nebs. Off Bipap -Cont steroids #Pulm HTN: FU Dr. Hamilton outpatient #Lactic acidosis: resolved with IVFs #Leukocytosis: CAP -Leukocytosis is improving -cont Rocephin/Azithromycin. #Acute on chronic hypoxemic resp failure: COPD exacerbation, Bipap -Back to baseline, but still very SOB #Chronic opioid dependency: home meds #Diet: regular #DVT ppx: Lovenox #Disp: cont inpatient admission for acute COPD exacerbation Plan: Still fees SOB but improving cont both abx and steroids will keep overnight an additional night CXR reviewed today with no acute findings Leukocytosis cont to improve Subjective: + cough, +DONG. slowly improving Objective: Vital Signs Temp Pulse Resp BP Pulse Ox 36.8 C 84 16 115/68 91 L 04/12/18 11:53 04/12/18 11:53 04/12/18 11:53 04/12/18 11:53 04/12/18 11:53 Microbiology 04/08/18 23:15 - Final Sputum, Expectorated Sputum Culture - Final Haemophilus Influenzae Laboratory Results 04/12/18 03:47 04/09/18 05:30 04/11/18 04/12/18 04/13/18 05:59 05:59 05:59 Intake Total 550 1100 Balance 550 1100 PT 12.9 SEC (12.0-15.0) 04/08/18 20:30 INR 0.95 (0.83-1.16) 04/08/18 20:30 - Physical Exam Constitutional: no apparent distress Eyes: PERRL, EOMI Ears, Nose, Mouth, Throat: moist mucous membranes, hearing normal Cardiovascular: regular rate and rhythym, No edema Respiratory: reduced air movement, rhonchi Gastrointestinal: normoactive bowel sounds, soft, non-tender abdomen Skin: warm Neurologic: AAOx3 Psychiatric: interacting appropriately, No encephalopathic Lymph, Heme, Immunologic: No petechiae ICD10 Worksheet Patient Problems: Problems Problem Status Onset Chronic Disease Mgmt/Transitional Care Acute Chronic obstructive pulmonary disease with acute exacerbation Acute Acute exacerbation of congestive heart failure Acute Hypoxemia Acute Peripheral edema Acute Pneumonia and influenza Acute Respiratory distress Acute
--- NOTE | 2018-04-12 12:47 | SOAPPROG ---
SOAP Progress Note Assessment/Plan: Assessment/plan: * Severe oxygen dependent emphysema-improved -continue current nebs and oral steroids * Pneumonia-human metapneumovirus/Haemophilus -continue current antibiotics * Acute respiratory failure-secondary to above. Markedly improved. -will increased pulmonary toilet * Rheumatoid arthritis * VT prophylaxis * Stress ulcer prophylaxis * Nutrition-adequate * Out of bed to chair and begin ambulation today * Disposition-likely home tomorrow with follow-up with me in the office Subjective: Looks and feels markedly improved. Objective: Vital Signs Temp Pulse Resp BP Pulse Ox 36.8 C 84 16 115/68 91 L 04/12/18 11:53 04/12/18 11:53 04/12/18 11:53 04/12/18 11:53 04/12/18 11:53 Microbiology 04/08/18 23:15 - Final Sputum, Expectorated Sputum Culture - Final Haemophilus Influenzae Laboratory Results 04/12/18 03:47 04/09/18 05:30 04/11/18 04/12/18 04/13/18 05:59 05:59 05:59 Intake Total 550 1100 Balance 550 1100 PT 12.9 SEC (12.0-15.0) 04/08/18 20:30 INR 0.95 (0.83-1.16) 04/08/18 20:30 Chest [id number] by myself. Hyperinflated lungs are again present. Diffusion is show markings consistent with pneumonia - Time Spent With Patient Time Spent With Patient: 25 min of time spent with patient, over 1/2 involved with coordination of care or counseling Physical Exam - Physical Exam General Appearance: alert, no apparent distress EENT: PERRL/EOMI, normal ENT inspection Neck: non-tender, full range of motion, supple, normal inspection Respiratory: decreased breath sounds, prolonged expiration, No wheezing Cardiac/Chest: normal peripheral pulses, regular rate, rhythm Abdomen: normal bowel sounds, non-tender, soft Pelvic Exam: deferred Rectal: deferred Skin: normal color, warm/dry Extremities: normal range of motion, non-tender, normal inspection, normal capillary refill Neuro/Psych: no motor/sensory deficits, alert, normal mood/affect, oriented x 3 ICD10 Worksheet Patient Problems: Problems Problem Status Onset Chronic Disease Mgmt/Transitional Care Acute Chronic obstructive pulmonary disease with acute exacerbation Acute Acute exacerbation of congestive heart failure Acute Hypoxemia Acute Peripheral edema Acute Pneumonia and influenza Acute Respiratory distress Acute
--- NOTE | 2018-04-12 14:42 | ASMTCMCOM ---
CM Note CM Note Notes: Pt may be ready for DC tomorrow. She will need to resume her home O2 but has nbo other DC needs at this time. Date Signed: 04/12/2018 02:42 PM Electronically Signed By:Keisha Hammonds LCSW
[2018-04-12] MEDS: clonazePAM 0.5 MG TAB PO SCH (20:05)
[2018-04-12] MEDS: GABAPENTIN 300 MG CAP PO SCH (20:05)
[2018-04-13] MEDS: LORazepam 0.5 MG TAB PO PRN (00:53)
[2018-04-13] MEDS: IPRATROPIUM/ALBUTEROL 3 ML DEYVIAL IH SCH ×2 (05:59→10:22)
[2018-04-13] MEDS: BUMETANIDE 1 MG TAB PO SCH (09:56)
[2018-04-13] MEDS: AZITHROMYCIN 250 MG TAB PO SCH (09:57)
[2018-04-13] MEDS: VARENICLINE TARTRATE 1 MG TAB PO SCH (09:57)
[2018-04-13] MEDS: ENOXAPARIN 40 MG/0.4 ML SYR SC SCH (09:58)
[2018-04-13] MEDS: POTASSIUM CL 20 MEQ TAB PO SCH (09:58)
[2018-04-13] MEDS: VITAMIN B COMPLEX 1 EA CAP/TAB PO SCH (09:58)
[2018-04-13] MEDS: CHOLECALCIFEROL VIT D3 1,000 UNITS TAB PO SCH (09:58)
[2018-04-13] MEDS: MULTIVITAMINS 1 EACH TAB PO SCH (09:58)
[2018-04-13] MEDS: predniSONE 20 MG TAB PO SCH (09:58)
[2018-04-13] MEDS: FLUTICASONE/SALMETER 250/50MCG DISKUS IH SCH (10:22)
[2018-04-13 11:29] VITALS: BP 155/71
--- NOTE | 2018-04-13 12:16 | PDDCSUM ---
Discharge Summary Discharge Summary: This is a 67 yo female with hx of COPD and chronic resp failure with a baseline supplemental O2 of 4L daily who was admitted with COPD exacerbation and Acute respiratory failure. She is now back to her baseline and will be discharged with a steroid taper. There was concern for bacterial infection and Leukocytosis and she was started on abx. She will be changed to Augmentin x 3 more days. Discharge diagnosis: #COPD exacerbation: +Rhino/entero. Nebs. Off Bipap -Cont steroids with taper over 2 weeks #Pulm HTN: FU with Dr. Noland #Lactic acidosis: resolved with IVFs #Leukocytosis: CAP -Leukocytosis is improving -Augment x 3 days #Acute on chronic hypoxemic resp failure: COPD exacerbation, Bipap -Back to baseline #Chronic opioid dependency: home meds #Diet: regular #DVT ppx: Lovenox #Disp: cont inpatient admission for acute COPD exacerbation Exam: VSS NAD AAOX3 RRR DECREASED LUNG SOUNDS S/NT/ND NO LE EDEMA MEDS: SEE MED REC F/U: PER ABOVE TOTAL TIME SPENT ON D/C IS 35 MINS. D/W DR. NOLAND
--- NOTE | 2018-04-17 12:57 | PQFORM ---
PHYSICIAN QUERY FORM Needs Your Response This query form is being sent to you to assure this patient record is coded properly. Please respond to the question below: CREW CLERK QUESTION: Dear Dr. Browning, In reviewing this patients medical record it was noted that the patient had the diagnosis of Human metapneumovirus Pneumonia. In Dr. Collazo's 04/09 Consultation the patient was diagnosed with "Pneumonia, human metapneumovirus." In the 04/10 Forest Fire Management Officer progress notes patient had the diagnosis of "Pneumonia , human metapneumovirus." In the 04/11-04/12 SOAP notes patient had the diagnosis of "Pneumonia, human metapneumovirus." In the 04/12 chest X-ray the findings state "could represent pneumonia." In the 04/09 CT chest Angiography pneumonia is suggested. Patient was treated with antibiotics. After study, should the diagnosis of "Human metapneumovirus Pneumonia" be included in the discharge summary? __x___ Yes No Unable to determine Other more appropriate diagnosis (please specify) Thank you URSULA Ayala HIM/Coding Dept. [phone] INSTRUCTIONS FOR RESPONSE: Answer question by clicking on the "Edit Document" button. Move cursor to area below the stars. When complete, hit "Save." Click on the "Sign" button, then click "Sign" again. Type in your PIN and hit "Enter." MTDD
== END 2018-04-13 14:23 | disposition home or self-care (01) | DRG 193 ==
LOC: F2N 23:02 → F1N 04-10 10:20
PROVIDERS: ADMIT Student in an Organized Health Care Education/Training Program; ATTEND Student in an Organized Health Care Education/Training Program
DX: J12.3 Human metapneumovirus pneumonia (principal); J96.21 Acute and chronic respiratory failure with hypoxia; J44.1 Chronic obstructive pulmonary disease with (acute) exacerbation; E87.2 Acidosis; F11.20 Opioid dependence, uncomplicated; I27.20 Pulmonary hypertension, unspecified; B97.89 Other viral agents as the cause of diseases classified elsewhere; Z72.0 Tobacco use; M06.9 Rheumatoid arthritis, unspecified
CPT/HCPCS: 87449-90; 96365; 97161-GP; G8978-GP-CI; G8979-GP-CI; G8980-GP-CI; J0456; J0696; J1650; J2930; J3475; J7512; J7613; Q9967

== ENCOUNTER → 2018-10-01 | Outpatient (CLI) | payer OTHER, MEDICARE | LOC: CIMAGING 12:50 | PROVIDERS: ATTEND Internal Medicine | DX: J44.0 Chronic obstructive pulmonary disease with (acute) lower respiratory infection (principal); M81.0 Age-related osteoporosis without current pathological fracture | CPT/HCPCS: 71046-PO ==

== ENCOUNTER → 2018-10-29 | Outpatient (CLI) | payer OTHER, MEDICARE | LOC: CIMAGING 12:13 | PROVIDERS: ATTEND Internal Medicine | DX: J44.1 Chronic obstructive pulmonary disease with (acute) exacerbation (principal) | CPT/HCPCS: 36415-PO; 71046-PO ==